=== PATIENT | female | born 1955 | race Caucasian/White ===

== ENCOUNTER → 2016-05-04 | Outpatient (CLI) | payer MEDICARE, BC ==
[2016-04-29 14:47] VITALS: BMI 26.2
[2016-05-04 12:35] VITALS: BP 154/78; PULSE 70; RESP 16; TEMP 98.1
--- NOTE | 2016-05-04 12:59 | P.HPIM ---
History of Present Illness H&P Date: 05/04/16 Chief Complaint: low back pain, bilateral lower extremity pain This is a 61-year-old patient referred by Dr. Lopez for chronic pain in low back and legs. Patient has been taking medications from primary care physician including Farner and Cymbalta with some relief. Patient denies adverse drug effects from medications. Patient also denies new-onset weakness, bowel/ bladder incontinence, or any other signs or symptoms of cauda equina syndrome. There are no signs of acute intoxication, and no indications of medication diversion or overuse. Patient notes that pain worsens significantly with standing and walking, and improves with rest, ice, and medication. Patient has used several types of medications for pain, including NSAIDS, OPIOIDS (Farner), TRAMADOL, ANTIDEPRESSANTS. Patient HAS had surgery. Patient HAS had neck injections previously and believes that she had a reaction to the steroids necessitating ER treatment with Benadryl but not epinephrine. Patient HAS had physical therapy recently. In addition to above, 13-point review of systems is also negative for chest pain , shortness of breath, changes in vision, changes in hearing, new onset weakness , abdominal pain, diarrhea, extreme fatigue, malaise, fever, skin changes, homicidal or suicidal ideation, or bowel or bladder incontinence. Vital Signs: Reviewed in EMR Gen: WDWN, AAOx3, NAD HEENT: NCAT, EOMI, hearing grossly normal Pulm: resp unlabored Abd: soft, NT, ND Neck: supple, trachea midline ROM in flexion lumbar spine: reduced ROM in extension lumbar spine: reduced Lumbar paravertebral tenderness: + Facet loading: + bilateral SI joint tenderness: + L side > R side Jose De Jesus's test: + L side > R side Straight leg raise: neg bilateral Neuro: CN II-XII grossly intact, muscle strength lower extremities PRESERVED Past Medical History Past Medical History: Fibromyalgia, GERD/Reflux, Osteoarthritis (OA) Additional Past Medical History / Comment(s): CHRONIC BACK PAIN, lower back pain to tail area and down both legs History of Any Multi-Drug Resistant Organisms: None Reported Past Surgical History: Back Surgery, Breast Surgery, Orthopedic Surgery, Tubal Ligation Additional Past Surgical History / Comment(s): BREAST AUGMENTATION, BUNIONECTOMY , LONA HAND SURGERY TOOK TENDON FROM ARM TO THUMB,RT THUMB SURGERY, BACK SURGERY X4 (CERVICAL AND LUMBAR WITH RODS AND SCREWS) Past Anesthesia/Blood Transfusion Reactions: Motion Sickness, Postoperative Nausea & Vomiting (PONV) Past Psychological History: Depression Smoking Status: Former smoker Past Alcohol Use History: Rare Additional Past Alcohol Use History / Comment(s): smoked 3 years <1/2ppd quit 1977 Past Drug Use History: Marijuana Additional Drug Use History / Comment(s): states uses medical marijuana "couple puffs before bed" - Past Family History Mother Family Medical History: Cancer Additional Family Medical History / Comment(s): UTERINE Father Family Medical History: Cancer, Fibromyalgia, Osteoarthritis (OA) Additional Family Medical History / Comment(s): SKIN CANCER Medications and Allergies Home Medications Medication Instructions Recorded Confirmed Type DULoxetine HCL [Cymbalta] 60 mg PO HS 11/13/13 05/04/16 History HYDROcodone/APAP 7.5-325MG [Farner 1 tab PO Q6HR PRN 11/13/13 05/04/16 History 7.5] DULoxetine HCL [Cymbalta] 30 mg PO DAILY 06/11/15 05/04/16 History Ibuprofen [Motrin] 800 mg PO DAILY PRN 04/29/16 05/04/16 History Allergies Allergy/AdvReac Type Severity Reaction Status Date / Time Neuromuscular Blockers, Allergy Unknown Swelling Verified 05/04/16 12:22 Steroidal [Steroidal Neuromuscular Blockers] Results Comments: MRI of the lumbar spine demonstrates multiple broad-based posterior disc protrusions. At the T12-L1 level there is a protrusion effacing the anterior thecal sac. At the L1-L2 level there is a right paracentral protrusion effacing the anterior lateral thecal sac. At the L2-L3 level there is a disc bulge effacing the anterior thecal sac with patent neural foramina. At the L3- L4 level there is a moderate broad disc bulge effacing the anterior thecal sac. At the L4-L5 level there is artifact and posterior fusion hardware. There is bilateral anterior inferior neural foraminal narrowing at this level. At the L5 -S1 level there are bilateral laminectomy defects and spinous process resection along with artifact and posterior fusion hardware. There is facet arthropathy and spondylolisthesis present at the L4-L5 level, along with facet degenerative changes at L1-L2, L2-L3, and L3-L4. Assessment and Plan (1) Lumbar postlaminectomy syndrome Status: Chronic (2) Lumbosacral spondylosis without myelopathy Status: Chronic (3) Sacroiliac joint dysfunction of both sides Status: Chronic Plan: Plan: 1. Explanation: Opioid and psychological risk scores were reviewed. Diagnoses , prognoses, and multiple treatment options including but not limited to physical therapy, interventional therapies, adjuvant medical therapies, narcotic medication therapies, and surgery were discussed with the patient and all questions were answered to the patient's satisfaction. 2. Opioid agreement: no opioids prescribed today 3. Counseling: The patient was counseled extensively on BODY MASS INDEX, EXERCISE. Specifically, the patient was instructed regarding the importance of weight control and exercise in the context of both chronic pain and overall health. 4. Procedures: bilateral lumbar MBB without steroids 5. Consultations: manager sharepoint Dr. Sam Nixon 6. Investigations: none 7. Medications: none prescribed 8. Disposition: f/u for MBB as scheduled. I believe that a large component of this patient's pain is coming from sacroiliitis, but given her poor reactions to steroid injections (severe flushing) and medrol dose anatoliy (skin blotching) in the past, I would like to have her worked up by an manager sharepoint to see if certain steroids could be used for interventions for her. Thus, I will schedule MBB without steroid for now and send her for allergy workup re: certain types of injected steroids. PQRS measures: 1-Patient's medications are documented in the chart. 2-Tobacco use is negative 3-Patient has not had a pneumococcal vaccine. 4-Advanced care planning discussed, patient unable to give. 5-Opioid contract NOT signed with the patient. 6-Pain positive, follow-up visit or procedure scheduled 7-Patient's blood pressure measured and documented, and patient will follow up with the primary care due to hypertension. 8-Patient's weight was measured, and body mass index ABOVE the normal limits, and counseling was done. Patient instructed to follow up with PCP. 9-Patient WAS NOT identified as an unhealthy alcohol user. Time with Patient: Greater than 30
== END ==
LOC: PNWHC3 12:14
PROVIDERS: ATTEND Anesthesiology
DX: M47.817 Spondylosis without myelopathy or radiculopathy, lumbosacral region (principal); M96.1 Postlaminectomy syndrome, not elsewhere classified; M53.3 Sacrococcygeal disorders, not elsewhere classified; M79.7 Fibromyalgia; K21.9 Gastro-esophageal reflux disease without esophagitis; M19.90 Unspecified osteoarthritis, unspecified site; F32.9 Major depressive disorder, single episode, unspecified; Z87.891 Personal history of nicotine dependence; Z79.1 Long term (current) use of non-steroidal anti-inflammatories (NSAID); Z79.899 Other long term (current) drug therapy; Z88.8 Allergy status to other drugs, medicaments and biological substances
CPT/HCPCS: 99211

== ENCOUNTER 2016-06-08 06:14 | Day surgery (SDC) | payer MEDICARE, BC ==
[2016-06-04 16:20] VITALS: BMI 26.6
[2016-06-08 06:33] VITALS: RESP 16; TEMP 98.4
[2016-06-08] MEDS ORDERED: LIDOCAINE 1% 20 ML VIAL (10MG/ML) FOR IV START INTRADERMA ONE (06:38)
[2016-06-08] MEDS ORDERED: LACTATED RINGERS 1,000 ML IV ONE (06:39)
[2016-06-08] MEDS ORDERED: BUPIVACAINE (PF) 0.5% 30 ML VIAL ONE (07:18)
[2016-06-08] MEDS ORDERED: MIDAZOLAM 2 MG/2 ML VIAL ONE (07:18)
[2016-06-08] MEDS ORDERED: IV FLUID CONTINUATION 1,000 ML IV ONE (07:46)
--- NOTE | 2016-06-08 07:46 | P.PCN ---
Date of Procedure: 06/08/16 Preoperative Diagnosis: Lumbar spondylosis without myelopathy Failed back surgery syndrome Postoperative Diagnosis: Same as above Procedure(s) Performed: Lumbar bilateral medial branch block under fluoroscopic guidance Anesthesia: MAC Surgeon: Jung James Pathology: none sent Condition: stable Disposition: PACU Description of Procedure: The patient was seen in the preoperative holding area consent was obtained then she was brought into the procedure room and placed in prone position. Skin was prepped with ChloraPrep and draped in a sterile manner. Lidocaine 1% was used to numb the skin over the target points that were chosen as follows: The patient has hardware to reduce the L5 vertebra with S1 under levels that were done were the fusion level, the target points were the connection between the transverse process and the superior articular process of vertebra L5, lumber 4, lumbar 3 targeting the medial branches L2,3 and 4. I used 22-gauge 3-1/2 inch Quincke spinal needles for this procedure and after contacting bone at the target points mentioned above I injected 1 mL of Marcaine 0.5%. I did not use steroids and also did not give any IV fentanyl for this procedure and only gave 2 mg of Versed IV. The patient had an ALLERGIC reaction to steroids and she is going to see an thread clipper.
[2016-06-08] MEDS ORDERED: LACTATED RINGERS 1,000 ML IV SCH (08:00)
[2016-06-08 08:05] VITALS: BP 144/88; PULSE 70
--- NOTE | 2016-06-08 09:18 | FL ---
EXAMINATION TYPE: FL guided pain mgmt statistic DATE OF EXAM: 06/08/2016 7:45 AM CLINICAL HISTORY: Low back pain. TECHNIQUE: Fluoroscopy. COMPARISON: None. FINDINGS: Fluoroscopic guidance was provided during pain relief procedure performed by Dr. James . A total of 8 seconds of fluoroscopic time was utilized during the procedure and 1 spot intraoperati ve image is acquired. Single image acquired shows needle localization at multiple levels in the lumb ar spine with surgical change near lumbosacral junction partially imaged. IMPRESSION: As Above.
== END 2016-06-08 08:31 | disposition home or self-care (01) ==
LOC: ORPAIN 06:14
PROVIDERS: ATTEND Anesthesiology
DX: M47.816 Spondylosis without myelopathy or radiculopathy, lumbar region (principal); M96.1 Postlaminectomy syndrome, not elsewhere classified; Z88.8 Allergy status to other drugs, medicaments and biological substances
CPT/HCPCS: 64493; 64494; 64495; J2250

== ENCOUNTER 2016-07-02 11:07 | Day surgery (SDC) | payer MEDICARE, BC ==
[2016-06-30 14:41] VITALS: BMI 26.6
[~2016-07-02 11:07] MED LIST: LACTATED RINGERS 1,000 ML IV SCH
[2016-07-02 11:18] VITALS: RESP 16; TEMP 98.1
[2016-07-02] MEDS ORDERED: LIDOCAINE 1% 20 ML VIAL (10MG/ML) FOR IV START INTRADERMA ONE (11:26)
[2016-07-02] MEDS ORDERED: BUPIVACAINE (PF) 0.5% 30 ML VIAL ONE (12:04)
[2016-07-02] MEDS ORDERED: MIDAZOLAM 2 MG/2 ML VIAL ONE (12:04)
--- NOTE | 2016-07-02 12:31 | P.PCN ---
Date of Procedure: 07/02/16 Preoperative Diagnosis: Postoperative Diagnosis: Procedure(s) Performed: Implants: Surgeon: Ryan Carranza Pathology: none sent Condition: stable Disposition: PACU Indications for Procedure: Operative Findings: Description of Procedure: PREOPERATIVE DIAGNOSIS: L2-L3, L3-L4, L4-L5 spondylosis without myelopathy and facet arthropathy. POSTOPERATIVE DIAGNOSIS: L2-L3, L3-L4, L4-L5 spondylosis without myelopathy and facet arthropathy. PROCEDURE DESCRIPTION: Patient presents for L2, L3, L4 diagnostic medial branch blocks under fluoroscopic guidance. The procedure is performed using fluoroscopic guidance during needle placement to assure proper position and maximize safety. ANESTHESIA: Local with 1% lidocaine; conscious sedation with Versed only EBL: Minimal PROCEDURE INDICATION: Patient with lumbar facet arthropathy signs and symptoms, here for diagnostic medial branch block #2. Pt does not take any blood thinning medications. Patient with very little relief from first lumbar MBB. PROCEDURE DESCRIPTION: The patient was seen and identified in the preoperative area. Risks, benefits, complications, and alternatives were discussed with the patient (including but not limited to incomplete pain relief, bleeding, infection, nerve damage, and allergies to medications), the patient agreed to proceed with the procedure and signed the consent after all questions were answered. Patient was taken to the OR and time out was completed to verify proper patient, position, laterality of pain, and allergies. Pt was placed in the prone position and a pillow was placed under the abdomen to reduce lumbar lordosis. The lumbosacral area was prepped and draped in the usual sterile fashion. Using oblique fluoroscopy, the eye of the "Hamilton dog" of right L3 vertebral body, which corresponds to the path of the medial branch originating from the level above, which is L2 in this case, was identified. Subsequently, a 22-gauge 3.5-inch spinal needle was inserted under fluoroscopic guidance toward the eye of the "Hamilton dog" of the right L4 vertebral body, corresponding to the junction of the superior articular process and the transverse process of the pedicle of the same level. After needle tip confirmation on lateral view and after negative aspiration for CSF and blood and without paresthesias, 1 mL of a 6 ml solution of 0.5% preservative-free bupivacaine, and NO STEROID. Subsequently the needle was withdrawn intact and the same procedure was repeated for the right L3, right L4, left L2, left L3, and left L4 medial branches which together with right L3 medial branch correspond to the sensory innervation of the bilateral L2-L3, L3-L4, L4-L5 facet joints. Needle was withdrawn intact after each injection. At the end of the procedure, the skin was cleansed and bandages were applied. COMPLICATIONS: None. DISPOSITION/PLAN: The patient taken to the recovery area after the procedure in a stable condition for observation. Patient was reexamined prior to discharge and there were no issues. Patient was discharged home, accompanied by an adult, after meeting discharged criteria. Discharge instructions were give to the patient by the staff. Patient was specifically instructed not to drive today and to rest for the rest of the day, and had immediate relief after the procedure. Patient will schedule a follow-up in clinic to discuss allergy issues with steroids after meeting with Dr. Nixon, the bowling ball grader. In the future, if repeat MBB performed, we will likely go at the levels of L2-L3, L3-L4, and L4-L5 as was done today.
[2016-07-02] MEDS ORDERED: IV FLUID CONTINUATION 1,000 ML IV ONE (12:33)
[2016-07-02 13:10] VITALS: BP 121/73; PULSE 67
--- NOTE | 2016-07-02 15:38 | FL ---
EXAMINATION TYPE: FL guided pain mgmt statistic DATE OF EXAM: 07/02/2016 12:29 PM CLINICAL HISTORY: Low back pain. TECHNIQUE: Fluoroscopy. COMPARISON: None. FINDINGS: Fluoroscopic guidance was provided during pain relief procedure performed by Dr. Cleveland . A total of 30 seconds of fluoroscopic time was utilized during the procedure and 7 spot images are acquired. Images acquired shows needle localization at several levels in the low back, postsurgical change at lumbosacral junction is noted. IMPRESSION: As Above.
== END 2016-07-02 13:14 | disposition home or self-care (01) ==
LOC: ORPAIN 11:07
PROVIDERS: ATTEND Specialist
DX: G89.29 Other chronic pain (principal); M54.5 Low back pain; M47.816 Spondylosis without myelopathy or radiculopathy, lumbar region; M46.96 Unspecified inflammatory spondylopathy, lumbar region; Z79.891 Long term (current) use of opiate analgesic; Z79.899 Other long term (current) drug therapy; Z88.8 Allergy status to other drugs, medicaments and biological substances
CPT/HCPCS: 64493; 64494; 64495; 99152; J2250

== ENCOUNTER → 2016-08-31 | Outpatient (CLI) | payer MEDICARE, BC ==
[2016-08-31 13:18] VITALS: BP 133/84; PULSE 76; RESP 16; TEMP 97.6
--- NOTE | 2016-08-31 13:36 | P.PN ---
Progress Note - Text Patient returns for followup for back pain with radiation to hips. Patient recently underwent LMBB x 2, the first of which gave her very little relief and the second of which gave her two weeks' relief despite lack of steroid from both. She has seen Dr. Nixon, the ip technology transactions attorney, who indicated to the patient that she can undergo steroid injections as long as she uses Benadryl po before. Patient continues on medical marijuana for pain with good relief. Patient denies adverse drug effects from medications. Today, pt denies new-onset weakness, bowel/bladder incontinence, or any other signs or symptoms of cauda equina syndrome. There are no signs of acute intoxication, and no indications of medication diversion or overuse. In addition to above, 13-point review of systems is also negative for chest pain , shortness of breath, changes in vision, changes in hearing, new onset weakness , abdominal pain, diarrhea, extreme fatigue, malaise, fever, skin changes, homicidal or suicidal ideation, or bowel or bladder incontinence. Vital Signs: Reviewed in EMR Gen: WDWN, AAOx3, NAD HEENT: NCAT, EOMI, hearing grossly normal Pulm: resp unlabored Abd: soft, NT, ND Neck: supple, trachea midline ROM in flexion lumbar spine: reduced ROM in extension lumbar spine: reduced Lumbar paravertebral tenderness: + Facet loading: + bilateral SI joint tenderness: + R > L Jose De Jesus's test: + R > L Straight leg raise: neg Neuro: CN II-XII grossly intact, muscle strength lower extremities PRESERVED Imaging: Reviewed in EMR Assessment: 1. lumbar spondylosis without myelopathy 2. lumbar PLPS 3. chronic pain syndrome Plan: 1. Explanation: Opioid and psychological risk scores were reviewed. Diagnoses , prognoses, and multiple treatment options including but not limited to physical therapy, interventional therapies, adjuvant medical therapies, narcotic medication therapies, and surgery were discussed with the patient and all questions were answered to the patient's satisfaction. 2. Opioid agreement: no opioids prescribed today 3. Counseling: The patient was counseled extensively on SMOKING CESSATION, BODY MASS INDEX, EXERCISE. Specifically, the patient was instructed regarding the importance of smoking cessation, weight control, and exercise in the context of both chronic pain and overall health. 4. Procedures: bilateral LMBB WITH steroid (patient to pre-medicate herself with Benadryl po two nights before and night before procedure) 5. Consultations: None 6. Investigations: None 7. Medications: none prescribed, patient uses THC 8. Disposition: f/u for procedure as scheduled; will ensure that diphenhydramine and epinephrine are available in OR 7 in case of allergic reaction PQRS measures: 1-Patient's medications are documented in the chart. 2-Tobacco use is positive, counseling given 3-Patient has not had a pneumococcal vaccine. 4-Advanced care planning discussed, patient unable to give. 5-Opioid contract NOT signed with the patient. 6-Pain positive, follow-up visit or procedure scheduled 7-Patient's blood pressure measured and documented, and patient will follow up with the primary care due to hypertension. 8-Patient's weight was measured, and body mass index ABOVE the normal limits, and counseling was done. Patient instructed to follow up with PCP. 9-Patient WAS NOT identified as an unhealthy alcohol user.
== END | disposition home or self-care (01) ==
LOC: PNWHC3 12:57
PROVIDERS: ATTEND Anesthesiology
DX: M47.816 Spondylosis without myelopathy or radiculopathy, lumbar region (principal); M96.1 Postlaminectomy syndrome, not elsewhere classified; G89.4 Chronic pain syndrome
CPT/HCPCS: 99211

== ENCOUNTER 2016-09-03 06:49 | Day surgery (SDC) | payer MEDICARE, BC ==
[2016-09-01 08:36] VITALS: BMI 26.6
[2016-09-03] MEDS ORDERED: LACTATED RINGERS 1,000 ML IV SCH (07:30)
[2016-09-03 07:34] VITALS: RESP 16; TEMP 98.3
[2016-09-03] MEDS ORDERED: LIDOCAINE 1% 20 ML VIAL (10MG/ML) FOR IV START INTRADERMA ONE (07:40)
[2016-09-03] MEDS ORDERED: IV FLUID CONTINUATION 1,000 ML IV ONE ×2 (08:21)
--- NOTE | 2016-09-03 08:24 | P.PCN ---
Date of Procedure: 09/03/16 Preoperative Diagnosis: Postoperative Diagnosis: Procedure(s) Performed: Implants: Surgeon: Ryan Carranza Pathology: none sent Condition: stable Disposition: PACU Indications for Procedure: Operative Findings: Description of Procedure: PREOPERATIVE DIAGNOSIS: L2-L3, L3-L4, L4-L5 spondylosis without myelopathy and facet arthropathy. POSTOPERATIVE DIAGNOSIS: L2-L3, L3-L4, L4-L5 spondylosis without myelopathy and facet arthropathy. PROCEDURE DESCRIPTION: Patient presents for L2-L3, L3-L4, L4-L5 diagnostic medial branch blocks under fluoroscopic guidance. The procedure is performed using fluoroscopic guidance during needle placement to assure proper position and maximize safety. ANESTHESIA: Local with 1% lidocaine; conscious sedation with Versed only EBL: Minimal PROCEDURE INDICATION: Patient with lumbar facet arthropathy signs and symptoms, here for diagnostic medial branch block #2. Pt does not take any blood thinning medications. Patient with two weeks from first LMBB done without steroids. Patient then saw activity manager who tested her for steroid allergy and she does not have it. PROCEDURE DESCRIPTION: The patient was seen and identified in the preoperative area. Risks, benefits, complications, and alternatives were discussed with the patient (including but not limited to incomplete pain relief, bleeding, infection, nerve damage, and allergies to medications), the patient agreed to proceed with the procedure and signed the consent after all questions were answered. Patient was taken to the OR and time out was completed to verify proper patient, position, laterality of pain, and allergies. Pt was placed in the prone position and a pillow was placed under the abdomen to reduce lumbar lordosis. The lumbosacral area was prepped and draped in the usual sterile fashion. Using oblique fluoroscopy, the eye of the "Hamilton dog" of right L3 vertebral body, which corresponds to the path of the medial branch originating from the level above, which is L2 in this case, was identified. Subsequently, a 22-gauge 3.5-inch spinal needle was inserted under fluoroscopic guidance toward the eye of the "Ham[place] dog" of the right L3 vertebral body, corresponding to the junction of the superior articular process and the transverse process of the pedicle of the same level. After needle tip confirmation on lateral view and after negative aspiration for CSF and blood and without paresthesias, 1 mL of a 6 ml solution of 5 ml 0.5% preservative-free bupivacaine, and 10 mg PF Decadron was injected. Subsequently the needle was withdrawn intact and the same procedure was repeated for the right L3, right L4, left L2, left L3, and left L4 medial branches which together with right L2 medial branch correspond to the sensory innervation of the bilateral L2-L3, L3-L4, L4-L5 facet joints. Needle was withdrawn intact after each injection. At the end of the procedure, the skin was cleansed and bandages were applied. COMPLICATIONS: None. DISPOSITION/PLAN: The patient taken to the recovery area after the procedure in a stable condition for observation. Patient was reexamined prior to discharge and there were no issues. Patient was discharged home, accompanied by an adult, after meeting discharged criteria. Discharge instructions were give to the patient by the staff. Patient was specifically instructed not to drive today and to rest for the rest of the day, and had immediate relief (pain 0/10) after the procedure. Patient will schedule a lumbar RFA at next visit.
[2016-09-03 08:26] VITALS: PULSE 62
[2016-09-03 08:39] VITALS: BP 115/78
--- NOTE | 2016-09-03 09:03 | FL ---
EXAMINATION TYPE: FL guided pain mgmt statistic DATE OF EXAM: 09/03/2016 HISTORY: Pain 30 SEC FLUORO, 7 IMAGES SCANNED INTO PACS
== END 2016-09-03 08:44 | disposition home or self-care (01) ==
LOC: ORPAIN 06:49
PROVIDERS: ATTEND Anesthesiology
DX: G89.4 Chronic pain syndrome (principal); M47.816 Spondylosis without myelopathy or radiculopathy, lumbar region; M46.96 Unspecified inflammatory spondylopathy, lumbar region; M96.1 Postlaminectomy syndrome, not elsewhere classified
CPT/HCPCS: 64493; 64494; 64495; 99152; J2250; J1100; 99153

== ENCOUNTER 2016-10-07 06:22 | Day surgery (SDC) | payer MEDICARE, BC ==
[2016-10-02 11:41] VITALS: BMI 26.6
[2016-10-07 07:39] VITALS: TEMP 98.3
[2016-10-07] MEDS ORDERED: LIDOCAINE 1% 20 ML VIAL (10MG/ML) FOR IV START INTRADERMA ONE (07:44)
--- NOTE | 2016-10-07 08:41 | P.PCN ---
Date of Procedure: 10/07/16 Preoperative Diagnosis: Postoperative Diagnosis: Procedure(s) Performed: PREOPERATIVE DIAGNOSIS: 1-Lumbar Spondylosis with Facet Arthropathy without myelopathy. POSTOPERATIVE DIAGNOSIS: 1- Lumbar Spondylosis with Facet Arthropathy without myelopathy. PROCEDURES : Left Radiofrequency thermocoagulation, L2-3 ,L3-L4, L4-L5, medial branch, with fluoroscopic guidance ANESTHESIA: IV sedation with versed 2 mg and fentaneyl 100 mcg and local infiltration with lidocaine 1% 6 ml EBL: Minimal PROCEDURE INDICATION: The patient with low back pain secondary to lumbar facet arthropathy who had more than 50% relief of her pain with previous diagnostic lumbar medial branch block with bupivacaine. PROCEDURE DESCRIPTION / TECHNIQUE: The patient was seen and identified in the preoperative area. Risks, benefits, complications, including but not limited to risk of infection ,bleeding , allergic reactions to the medications and no complete pain releife , and alternatives were discussed with the patient, the patient agreed to proceed with the procedure and signed the consent. IV was started. Vital signs remained stable throughout the procedure. Patient was taken to the OR and time out was completed. The patient was placed in the prone position on the procedure table. The lumber area was prepped and draped in the usual sterile fashion. . Vital signs were closely monitored during the procedure .IV sedation was used during the procedure to decrease patients anxiety. Using AP and then oblique fluoroscopy, the ``eye of the Hamilton dog corresponding to the connection between the superior and transverse articular processes of Left L2 ,L3, L4, were identified, marked, and localized with 1% lidocaine. Subsequently, a [id number] radiofrequency cannula with a 10-mm active tip was advanced guided by fluoroscopy to each of the ``eyes of the Hamilton dog at Left L2 ,L3, L4 . Each site then underwent sensory testing at 50 Hz and 0 to 1 volt and motor testing at 2.5 Hz and 0 to 3 volt with local stimulation, but no radicular symptoms down the legs. Thereafter the Left L2-3 , L3-4, L4-5, sites underwent radiofrequency thermocoagulation at 80 degrees celsius for 90 seconds after injecting 0.5 ml of PF lidocaine 1%. then After the thermocoagulation done , 1 ml of the block solution containing PF Dexamethasone 10 mg and 3 ml of marain 0.5% was injected at the Left L2-3 , L3- 4 , L4-5 , levels after negative aspiration of CSF and blood and with no paresthesias. Cannulas were retracted while injecting lidocaine 1% until the needle is out. At the end of the procedure, the skin was cleansed and bandages were applied. COMPLICATIONS: No acute complications. DISPOSITION / PLANS: The patient was placed in a supine position and transferred to the recovery area in a stable condition for observation and was discharged from the recovery room after meeting discharge criteria. Home discharge instructions given to the patient by the staff. The patient was reexamined prior to discharge. The patient will schedule a follow up in the clinic in 2-4 weeks. Implants: Indications for Procedure: Operative Findings: Description of Procedure:
[2016-10-07] MEDS ORDERED: IV FLUID CONTINUATION 1,000 ML IV ONE (08:46)
[2016-10-07 08:49] VITALS: RESP 18
[2016-10-07 09:02] VITALS: BP 120/72; PULSE 73
--- NOTE | 2016-10-07 10:12 | FL ---
EXAMINATION TYPE: FL guided pain mgmt statistic DATE OF EXAM: 10/07/2016 COMPARISON: NONE HISTORY: Back pain TECHNIQUE: Fluoroscopy. FINDINGS/IMPRESSION: Fluoroscopic guidance was provided during procedure performed by Dr. Cleveland. A total of 7 seconds of fluoroscopic time was utilized during the procedure.
== END 2016-10-07 09:23 | disposition home or self-care (01) ==
LOC: ORPAIN 06:22
PROVIDERS: ATTEND Specialist
DX: M47.816 Spondylosis without myelopathy or radiculopathy, lumbar region (principal); M46.96 Unspecified inflammatory spondylopathy, lumbar region; Z88.8 Allergy status to other drugs, medicaments and biological substances
CPT/HCPCS: 64635; 64636 ×2; 99152; J2250; J1100; J3010; 99153

== ENCOUNTER → 2016-10-26 | Outpatient (CLI) | payer MEDICARE, BC ==
[2016-10-26 13:17] VITALS: BP 142/90; PULSE 91; RESP 18; TEMP 98.5
--- NOTE | 2016-10-26 13:28 | P.PN ---
Progress Note - Text Patient returns for followup for back pain with radiation to hips. Patient recently underwent left lumbar RFA. She has seen Dr. Nixon, the dehydrator tender, who indicated to the patient that she can undergo steroid injections as long as she uses Benadryl po before. Patient continues on medical marijuana and [place] for pain from PCP with good relief. Patient denies adverse drug effects from medications. Today, pt denies new-onset weakness, bowel/bladder incontinence, or any other signs or symptoms of cauda equina syndrome. There are no signs of acute intoxication, and no indications of medication diversion or overuse. In addition to above, 13-point review of systems is also negative for chest pain , shortness of breath, changes in vision, changes in hearing, new onset weakness , abdominal pain, diarrhea, extreme fatigue, malaise, fever, skin changes, homicidal or suicidal ideation, or bowel or bladder incontinence. Vital Signs: Reviewed in EMR Gen: WDWN, AAOx3, NAD HEENT: NCAT, EOMI, hearing grossly normal Pulm: resp unlabored Abd: soft, NT, ND Neck: supple, trachea midline ROM in flexion lumbar spine: reduced ROM in extension lumbar spine: reduced Lumbar paravertebral tenderness: + Facet loading: + bilateral SI joint tenderness: + bilateral Jose De Jesus's test: + bilateral Straight leg raise: neg Neuro: CN II-XII grossly intact, muscle strength lower extremities PRESERVED Imaging: Reviewed in EMR Assessment: 1. lumbar spondylosis without myelopathy 2. lumbar PLPS 3. chronic pain syndrome Plan: 1. Explanation: Opioid and psychological risk scores were reviewed. Diagnoses , prognoses, and multiple treatment options including but not limited to physical therapy, interventional therapies, adjuvant medical therapies, narcotic medication therapies, and surgery were discussed with the patient and all questions were answered to the patient's satisfaction. 2. Opioid agreement: no opioids prescribed today 3. Counseling: The patient was counseled extensively on SMOKING CESSATION, BODY MASS INDEX, EXERCISE. Specifically, the patient was instructed regarding the importance of smoking cessation, weight control, and exercise in the context of both chronic pain and overall health. 4. Procedures: right lumbar RFA L2-L3, L3-L4, L4-L5 5. Consultations: None 6. Investigations: None 7. Medications: none prescribed, patient uses THC 8. Disposition: f/u for procedure as scheduled; patient to follow up PRN after procedure PQRS measures: 1-Patient's medications are documented in the chart. 2-Tobacco use is positive, counseling given 3-Patient has not had a pneumococcal vaccine. 4-Advanced care planning discussed, patient unable to give. 5-Opioid contract NOT signed with the patient. 6-Pain positive, follow-up visit or procedure scheduled 7-Patient's blood pressure measured and documented, and patient will follow up with the primary care due to hypertension. 8-Patient's weight was measured, and body mass index ABOVE the normal limits, and counseling was done. Patient instructed to follow up with PCP. 9-Patient WAS NOT identified as an unhealthy alcohol user.
== END | disposition home or self-care (01) ==
LOC: PNWHC3 12:53
PROVIDERS: ATTEND Anesthesiology
DX: M47.816 Spondylosis without myelopathy or radiculopathy, lumbar region (principal); M96.1 Postlaminectomy syndrome, not elsewhere classified; G89.4 Chronic pain syndrome; Z79.899 Other long term (current) drug therapy
CPT/HCPCS: 99211

== ENCOUNTER 2016-11-02 09:05 | Day surgery (SDC) | payer MEDICARE, BC ==
[2016-10-28 15:45] VITALS: BMI 26.6
[2016-11-02] MEDS ORDERED: LIDOCAINE 1% 20 ML VIAL (10MG/ML) FOR IV START INTRADERMA ONE (09:11)
[2016-11-02 09:21] VITALS: RESP 16; TEMP 98.2
--- NOTE | 2016-11-02 10:15 | P.PCN ---
Date of Procedure: 11/02/16 Preoperative Diagnosis: Failed back surgery syndrome Lumbar spondylosis without myelopathy Postoperative Diagnosis: Same as above Procedure(s) Performed: Right Lumbar medial branch radiofrequency ablation for the medial branches number L1,L2, L3,and L4 under fluoroscopic guidance Anesthesia: MAC (Moderate conscious sedation with IV Versed and fentanyl) Surgeon: Jung James Pathology: none sent Condition: stable Disposition: PACU Description of Procedure: Of note the patient has 6 lumbar vertebrae and the last one #6 is fused to the sacrum by hardware from her previous back surgery. The patient has an ALLERGIC reaction to steroids with face flushing, but steroids were not used in this procedure today. I did not target the dorsal ramus of L5 due to the lumbar sacral fusion by hardware. The medial branches that were targeted to were lumbar L1, L2, L3, and L4 and this covers 3 levels of the facet joints. I used 18-gauge 100 mm in length with 10 mm curved active tip radio frequency ablation needles for this procedure. I placed the active tips as parallel as possible to the medial branches tracks by going in a superior medial direction. The target point was at the connection between the transverse process and the superior articular process of vertebrae L5, L4, L3, and L2. AP, oblique, and lateral views of fluoroscopy were used to verify needle tip position. Then motor stimulation showed only local twitches of these needles with no radiation of twitching to the right lower extremity. After That I injected 1 mL of Marcaine 0.5% without any steroids in each needle, then radiofrequency ablation started for 90 seconds at 80C for 2 sessions. Patient tolerated procedure well. Fluoroscopy time 17 seconds.
[2016-11-02 10:26] VITALS: PULSE 71
[2016-11-02] MEDS ORDERED: IV FLUID CONTINUATION 1,000 ML IV ONE (10:32)
[2016-11-02 10:53] VITALS: BP 138/84
--- NOTE | 2016-11-02 10:53 | FL ---
EXAMINATION TYPE: FL guided pain mgmt statistic DATE OF EXAM: 11/02/2016 FLUOROSCOPY Fluoroscopy time of 17 seconds was used during right-sided lumbar radiofrequency ablation. 3 image/s document/s the procedure.
== END 2016-11-02 11:04 | disposition home or self-care (01) ==
LOC: ORPAIN 09:05
PROVIDERS: ATTEND Anesthesiology
DX: M47.816 Spondylosis without myelopathy or radiculopathy, lumbar region (principal); M96.1 Postlaminectomy syndrome, not elsewhere classified; Z79.891 Long term (current) use of opiate analgesic; Z79.899 Other long term (current) drug therapy; Z88.8 Allergy status to other drugs, medicaments and biological substances
CPT/HCPCS: 64635; 64636 ×2; 99152; J2250; J3010

== ENCOUNTER 2016-12-28 09:30 | Day surgery (SDC) | payer MEDICARE, BC ==
[2016-12-25 08:12] VITALS: BMI 26.6
[2016-12-28 09:17] VITALS: RESP 16; TEMP 97
[~2016-12-28 09:30] MED LIST changes: +LIDOCAINE 1% 20 ML VIAL (10MG/ML) FOR IV START INTRADERMA ONE
--- NOTE | 2016-12-28 10:23 | P.PCN ---
Date of Procedure: 12/28/16 Preoperative Diagnosis: Myofascial pain in the lumbar area Lumbar postlaminectomy pain syndrome Postoperative Diagnosis: Same as above Anesthesia: MAC (Conscious sedation with IV fentanyl and Versed) Surgeon: Jung James Pathology: none sent Condition: stable Disposition: PACU Description of Procedure: The patient was seen in the preop holding area consent was obtained then she was brought into the procedure room and placed in prone position. Skin was prepped with DuraPrep and draped in a sterile manner. The trigger points were marked at the skin level then I used 25-gauge 1-1/2 inch needle to go through the skin and into the muscles of the lumbar paravertebral area bilaterally total of 5 injections were done and at each point I give 2 MLS of a mixture of 9 MLS Marcaine 0.25% +40 mg of Kenalog. Patient tolerated procedure well. The patient will follow up with our clinic as needed.
[2016-12-28 10:59] VITALS: BP 123/72; PULSE 65
== END 2016-12-28 11:30 | disposition home or self-care (01) ==
LOC: ORPAIN 09:30
PROVIDERS: ATTEND Anesthesiology
DX: G89.4 Chronic pain syndrome (principal); M79.1 Myalgia; M96.1 Postlaminectomy syndrome, not elsewhere classified; Z79.891 Long term (current) use of opiate analgesic; Z79.899 Other long term (current) drug therapy; M47.816 Spondylosis without myelopathy or radiculopathy, lumbar region; Z88.8 Allergy status to other drugs, medicaments and biological substances
CPT/HCPCS: 20553; J3301; 99152

== ENCOUNTER → 2017-01-04 | Outpatient (CLI) | payer MEDICARE, BC ==
[2017-01-04 11:02] LABS: Basophils % (A) 0 %; CH 31.5; CHCM 34.7; Eosinophils # (A) 0.1 k/uL (0-0.7); Eosinophils % (A) 1 %; HCT 40.6 % (34.0-46.0); HDW 2.56; HGB 13.6 gm/dL (11.4-16.0); Luc # (Auto) 0.14; Luc % (Auto) 2; Lymphocytes # (A) 1.8 k/uL (1.0-4.8); Lymphocytes % (A) 21 %; MCH 30.5 pg (25.0-35.0); MCHC 33.4 g/dL (31.0-37.0); MCV 91.2 fL (80.0-100.0); Mean Platelet Volume 6.4; Monocytes # (A) 0.4 k/uL (0-1.0); Monocytes % (A) 5 %; Neutrophils # (A) 6.1 k/uL (1.3-7.7); Neutrophils % (A) 71 %; RBC 4.45 m/uL (3.80-5.40); RDW 12.6 % (11.5-15.5); WBC 8.6 k/uL (3.8-10.6); WBC (Perox) 8.69
[2017-01-04 11:18] LABS: ALT 44 U/L (9-52); AST 21 U/L (14-36); Alkaline Phosphatase 70 U/L (38-126); Bilirubin, Delta 0.1 mg/dL (0.0-0.2); C Reactive Protein <5.0 mg/L (<10.0); Rheumatoid Factor, Qnt <9 IU/mL (<12); Total Bilirubin 0.4 mg/dL (0.2-1.3); Total Protein 6.7 g/dL (6.3-8.2)
[2017-01-04 13:35] LABS: Erythrocyte Sedimentation Rate 13 mm/hr (0-20)
[2017-01-05 11:19] LABS: HLA B27 Comment SEEBELOW
== END | disposition home or self-care (01) ==
LOC: LABWHC1 10:16
PROVIDERS: ATTEND Nurse Practitioner Women's Health
DX: M54.5 Low back pain (principal); M06.9 Rheumatoid arthritis, unspecified; M79.7 Fibromyalgia; Z79.899 Other long term (current) drug therapy
CPT/HCPCS: 36415; 80076; 85025; 85652; 86140; 86162; 86431; 86812

== ENCOUNTER → 2017-07-23 | Outpatient (CLI) | payer MEDICARE, BC ==
[2017-07-23 08:26] LABS: Basophils % (A) 0 %; Eosinophils # (A) 0.2 k/uL (0-0.7); Eosinophils % (A) 2 %; HCT 43.4 % (34.0-46.0); HGB 14.7 gm/dL (11.4-16.0); Lymphocytes # (A) 1.5 k/uL (1.0-4.8); Lymphocytes % (A) 20 %; MCH 30.8 pg (25.0-35.0); MCHC 33.8 g/dL (31.0-37.0); Monocytes # (A) 0.3 k/uL (0-1.0); Monocytes % (A) 4 %; Neutrophils # (A) 5.1 k/uL (1.3-7.7); Neutrophils % (A) 71 %; Platelet Count 424 k/uL (150-450); RBC 4.77 m/uL (3.80-5.40); RDW 13.2 % (11.5-15.5); WBC 7.1 k/uL (3.8-10.6)
[2017-07-23 08:48] LABS: ALT 26 U/L (9-52); AST 23 U/L (14-36); Albumin 4.6 g/dL (3.5-5.0); Alkaline Phosphatase 68 U/L (38-126); Anion Gap 13 mmol/L; Blood Urea Nitrogen 26 mg/dL (7-17); Calcium 9.6 mg/dL (8.4-10.2); Carbon Dioxide 26 mmol/L (22-30); Chloride 104 mmol/L (98-107); Cholesterol 246 mg/dL (<200); Glucose 94 mg/dL (74-99); HDL Cholesterol 92 mg/dL (40-60); LDL Cholesterol,Calculated 138 mg/dL (0-99); Potassium 4.6 mmol/L (3.5-5.1); Sodium 143 mmol/L (137-145); Total Bilirubin 0.7 mg/dL (0.2-1.3); Total Protein 7.2 g/dL (6.3-8.2); Triglycerides 82 mg/dL (<150)
== END | disposition home or self-care (01) ==
LOC: LABWHC1 08:04
PROVIDERS: ATTEND Family Medicine
DX: Z00.00 Encounter for general adult medical examination without abnormal findings (principal); M06.9 Rheumatoid arthritis, unspecified; M79.7 Fibromyalgia
CPT/HCPCS: 36415; 80053; 80061; 84443; 85025

== ENCOUNTER → 2017-08-03 | Outpatient (CLI) | payer MEDICARE, BC ==
--- NOTE | 2017-08-05 12:08 | MM ---
Reason for exam: screening (asymptomatic). Last mammogram was performed 2 years and 7 months ago. History: Patient is postmenopausal. Family history of breast cancer in grandmother at age 70. Retro-pectoral saline implants in both breasts, 1997. Took estrogen beginning at age 51. Took progesterone beginning at age 51. Physical Findings: A clinical breast exam by your physician is recommended on an annual basis and results should be correlated with mammographic findings. MG Screening Mammo Implant/CAD Bilateral CC, MLO, and ID view(s) were taken. Prior study comparison: January 15, 2015, bilateral MG 3d diag mammo imp w/cad LONA. December 26, 2013, bilateral MG diagnostic mammo w CAD LONA. There is chronic nodularity in the left breast. Bilateral breast prothesis. No significant changes when compared with prior studies. ASSESSMENT: Benign, BI-RAD 2 RECOMMENDATION: Routine screening mammogram of both breasts in 1 year.
== END | disposition home or self-care (01) ==
LOC: RADMAMWWP 09:32
PROVIDERS: ATTEND Family Medicine
DX: Z12.31 Encounter for screening mammogram for malignant neoplasm of breast (principal)
CPT/HCPCS: 77067

== ENCOUNTER → 2018-08-23 | Outpatient (CLI) | payer MEDICARE, BC ==
[2018-08-23 10:06] LABS: Basophils % (A) 0 %; Eosinophils # (A) 0.1 k/uL (0-0.7); Eosinophils % (A) 2 %; HGB 13.6 gm/dL (11.4-16.0); Lymphocytes # (A) 1.4 k/uL (1.0-4.8); Lymphocytes % (A) 26 %; MCH 30.6 pg (25.0-35.0); MCHC 33.1 g/dL (31.0-37.0); MCV 92.4 fL (80.0-100.0); Mean Platelet Volume 6.2; Monocytes # (A) 0.2 k/uL (0-1.0); Monocytes % (A) 5 %; Neutrophils # (A) 3.4 k/uL (1.3-7.7); Neutrophils % (A) 64 %; Platelet Count 426 k/uL (150-450); RBC 4.44 m/uL (3.80-5.40); RDW 12.6 % (11.5-15.5); WBC 5.3 k/uL (3.8-10.6)
[2018-08-23 17:49] LABS: African American GFR (CKD) 91.6 (60.0-200.0); Albumin 4.4 g/dL (3.80-4.90); Albumin/Globulin Ratio 2.59 (1.60-3.17); Anion Gap 7.3 mmol/L (4.00-12.00); BUN/Creat Ratio 27.5 Ratio (12.00-20.00); Calcium 9.6 mg/dL (8.7-10.3); Carbon Dioxide 26.7 mmol/L (21.6-31.8); Globulin 1.7 g/dL (1.6-3.3); LDL Cholesterol,Calculated 124.2 mg/dL (0.0-131.0); Potassium 4.4 mmol/L (3.5-5.5); Total Bilirubin 0.8 mg/dL (0.2-1.2); Total Protein 6.1 g/dL (6.2-8.2); VLDL Calculation 13.8 mg/dL (5.00-40.00)
[2018-08-23 18:01] LABS: T4, Free (Free Thyroxine) 0.9 ng/dL (0.80-1.80)
== END | disposition home or self-care (01) ==
LOC: LABWHC1 09:14
PROVIDERS: ATTEND Family Medicine
DX: M43.17 Spondylolisthesis, lumbosacral region (principal); M79.7 Fibromyalgia
CPT/HCPCS: 36415; 80053; 80061; 84439; 84443; 85025

== ENCOUNTER → 2020-11-05 | Outpatient (CLI) | payer MEDICARE, OTHER ==
[2020-11-05 15:01] LABS: Basophils # (A) 0.03 X 10*3/uL (0.00-0.10); Basophils % (A) 0.5 %; Eosinophils # (A) 0.14 X 10*3/uL (0.04-0.35); Eosinophils % (A) 2.2 %; HCT 42.5 % (37.2-46.3); Lymphocytes # (A) 1.36 X 10*3/uL (0.90-5.00); Lymphocytes % (A) 21.2 %; MCH 30.8 pg (27.0-32.0); MCHC 32.9 g/dL (32.0-37.0); MCV 93.6 fL (80.0-97.0); Mean Platelet Volume 9.1 fL (9.5-12.2); Monocytes % (A) 6.2 %; Neutrophils # (A) 4.47 X 10*3/uL (1.80-7.70); Neutrophils % (A) 69.6 %; Platelet Count 427 X 10*3/uL (140-440); RBC 4.54 X 10*6/uL (4.10-5.20); RDW 12.3 % (11.5-14.5); WBC 6.42 X 10*3/uL (4.50-10.00)
[2020-11-05 20:05] LABS: African American GFR (CKD) 90.3 (60.0-200.0); Albumin 4.3 g/dL (3.80-4.90); Albumin/Globulin Ratio 1.95 (1.60-3.17); BUN/Creat Ratio 23.75 Ratio (12.00-20.00); Calcium 9.4 mg/dL (8.7-10.3); Chol/HDL Ratio 3.77; Globulin 2.2 g/dL (1.6-3.3); LDL Cholesterol,Calculated 155.2 mg/dL (0.0-131.0); Non-African American GFR(CKD) 77.9 (60.0-200.0); Potassium 4.6 mmol/L (3.5-5.5); Total Bilirubin 0.6 mg/dL (0.2-1.2); Total Protein 6.5 g/dL (6.2-8.2); VLDL Calculation 24.8 mg/dL (5.00-40.00)
== END | disposition home or self-care (01) ==
LOC: LABWHC1 09:38
PROVIDERS: ATTEND Family Medicine
DX: Z00.00 Encounter for general adult medical examination without abnormal findings (principal)
CPT/HCPCS: 36415; 80053; 80061; 84443; 85025; 87522

== ENCOUNTER → 2020-11-25 | Outpatient (CLI) | payer MEDICARE, OTHER ==
--- NOTE | 2020-11-26 11:36 | MM ---
Reason for exam: screening (asymptomatic). Last mammogram was performed 3 years and 4 months ago. History: Patient is postmenopausal. Family history of breast cancer in grandmother at age 70. Retro-pectoral saline implants in both breasts, 1997. Took estrogen beginning at age 51. Took progesterone beginning at age 51. Physical Findings: A clinical breast exam by your physician is recommended on an annual basis and results should be correlated with mammographic findings. MG 3D Screen Mammo Imp/Cad Bilateral CC, MLO, and ID view(s) were taken. Prior study comparison: August 03, 2017, bilateral MG screening mammo implant/CAD. January 15, 2015, bilateral MG 3d diag mammo imp w/cad LONA. There are scattered fibroglandular densities. There is chronic nodularity in the left breast. There is no discrete abnormality. Bilateral subglandular implants redemonstrated. ASSESSMENT: Benign, BI-RAD 2 RECOMMENDATION: Routine screening mammogram of both breasts in 1 year.
== END | disposition home or self-care (01) ==
LOC: RADMAMWWP 09:41
PROVIDERS: ATTEND Family Medicine
DX: Z12.31 Encounter for screening mammogram for malignant neoplasm of breast (principal)
CPT/HCPCS: 77063; 77067

== ENCOUNTER → 2021-09-25 | Outpatient (CLI) | payer MEDICARE, OTHER ==
[2021-09-25 10:04] VITALS: BP 136/88; PULSE 66; RESP 18; TEMP 98.2
--- NOTE | 2021-09-25 13:41 | P.PAINPG ---
PQRS Measure Charge Sheet Comment: HISTORY OF PRESENT ILLNESS: 66 yr old female as a referral from Dr Sharp presents today w severe and chronic cervical pain x 3 mo secondary to DDD and facet arthropathy for evaluation. Pt states her pain level is currently at 6/10 in intensity, constant, localized in the mid to lower aspect of her cervical spine w intermittent pins & needle sensations in LUE. Pain is provoked by rotation of the cervical spine. Pain is palliated by PT to restart in September 2021, heat, ice, topicals, medications (Tylenol OTC, [place] prn), extension of LUE overhead, repositioning and rest. PMH: Fibromyalgia, GERD, OA, MDD PSH: ACDF C4-C7, Breast Augmentation, BL Hand Tendonectomy, Lumbar Surgery w screws & rods SH: 1/2 ppd (Quit 1977), +Cannabis use, Rare ETOH use. FH: Mo- Uterine CA. Fa- SKin Ca/ Fibromyalgia/ OA. All: See list Meds: See list REVIEW OF ORGAN SYSTEMS: CONSTITUTIONAL: No fevers or chills. No recent weight loss. NEUROLOGICAL: + numbness and tingling along the distal extremities. No seizure disorders or headaches. MUSCULOSKELETAL: + pain PSYCHIATRIC: Denies current depression or suicidal thoughts. Physical Examinations : Constitutional : Cooperative , not in acute distress . Neurologic : Cranial nerve II to XII intact. No focal neurological deficits. Psychiatric : alert & oriented x 3. Matching mood & appropriate affect. Judgment & insight intact. Musculoskeletal : Cervical Spine Motor strength in the deltoid and biceps: Normal right side. Normal Left side Motor strength biceps and the wrist extensors: Normal right side . Normal left side Motor strength in the triceps muscle: Normal right side. Normal left side Deep tendon reflexes: Normal at the biceps. Normal at Brachioradialis. Normal at triceps Vertebral body tenderness to deep palpation over C5, C6, C7 Cervical facet loading test: positive bilaterally over C6-C7 Spurling test: positive bilaterally Neck distraction test: positive bilaterally Homero sign: positive bilaterally Lumbar spine Motor strength lower extremities ,thigh and legs 5/5 Right side , 5/5 Left side Deep tendon reflexes : Normal Knee Jerk. Normal Ankle Jerk Vertebral body tenderness over Lumbar facet Loading Test: positive Right / positive Left Range of motion of the lumbar spine Flexion 30 degrees, extension 10 degrees Straight Leg Raise test: Left/ Right positive at degree Leslie test: positive right / positive left. Severe tenderness over the Sacroiliac joint on the Right / Left sides Gaenslen test: positive bilaterally Seated flexion test: positive bilaterally. Sacral spine : Severe tenderness over the Sacroiliac joint: right side / left side Range of motion: Flexion of the lumbar spine <60 degrees Range of motion: Extension of the l umbar spine <20 degrees Gaenslen's Test positive Jose De Jesus's Test positive Leslie test: positive right side / left side Thigh Thrust Test Sacral Thrust Test Imaging: X ray of the cervical spine, from 08/29/21 reviewed Assessment/ Plan : Cervical DDD Recommendation of MRI without contrast of the cervical spine re: M50.30. Pt is to participate in PT and may return to our clinic within 6 weeks for re evaluation and to explore additional treatment options, if necessary. All questions answered. I have spent greater than 30 minutes on patient care today. Dr Cleveland was available by phone for the evaluation of this patient. The time was used to review the medical records including relevant urine studies and Prescription history (MAPs), review of the available imaging, evaluation and examination of the patient, coordination of care with the medical staff and if applicable referring physicians, as well as creation of the medical record PQRS Narrative: Smoking Status Former smoker Hx Alcohol Use (MH) No Home Medications: Ambulatory Orders DULoxetine HCL [Cymbalta] 60 mg PO HS 11/13/13 HYDROcodone/APAP 7.5-325MG [[place] 7.5] 1 tab PO Q6HR PRN 11/13/13 DULoxetine HCL [Cymbalta] 30 mg PO DAILY 06/11/15 diphenhydrAMINE [Benadryl] 25 mg PO QID PRN 10/02/16 Controlled Substance Measures - Controlled Substance Measures Is patient prescribed a controlled substance at discharge?: No
== END ==
LOC: PNWHC3 08:04
PROVIDERS: ATTEND Specialist
DX: M54.12 Radiculopathy, cervical region (principal); Z98.890 Other specified postprocedural states; Z88.8 Allergy status to other drugs, medicaments and biological substances; Z87.891 Personal history of nicotine dependence; F32.9 Major depressive disorder, single episode, unspecified; M19.90 Unspecified osteoarthritis, unspecified site
CPT/HCPCS: 99211

== ENCOUNTER → 2021-10-29 | Outpatient (CLI) | payer MEDICARE, OTHER ==
--- NOTE | 2021-10-29 12:47 | MR ---
EXAMINATION TYPE: MR cervical spine wo con DATE OF EXAM: 10/29/2021 INDICATION: Patient age:Female; 66 years old; Reason for study: M80.30 cervical degenerative disc disease. Left arm/hand numbness COMPARISON: MRI 10/22/2011. TECHNIQUE: Multi planar, multi sequence imaging was performed utilizing: T1-weighted, T2-weighted, an d turbo inversion recovery imaging of the cervical spine. IV Contrast: None FINDINGS: Alignment: The cervical vertebral bodies have preserved heights. Alignment is within normal limits gi sondra patient positioning. Bones: Post fixation changes are seen throughout the cervical spine extending from C4 C5 C6 and C7. Cord: The spinal cord is unremarkable with regards to their signal intensity and morphology. Discs: Disc desiccation and postsurgical changes. C2-C3: No significant disc pathology. The spinal canal is patent. Bilateral facet and uncovertebral joint arthropathy are present with mild right neural foraminal stenosis. The left neural foramen is p atent. C3-C4: No significant disc pathology. The spinal canal is patent. Bilateral facet and uncovertebral joint arthropathy are present with mild left neural foraminal stenosis. The right neural foramen is p atent. C4-C5: The disc is surgically absent. The spinal canal is patent. Bilateral facet and uncovertebral joint arthropathy are present with mild bilateral neural foraminal stenosis. C5-C6: No significant disc pathology. The spinal canal is patent. No neural foraminal stenosis. C6-C7: No significant disc pathology. The spinal canal is patent. Bilateral facet and uncovertebral joint arthropathy are present with mild left neural foraminal stenosis. The right neural foramen is p atent. C7-T1: A disc osteophyte complex is present with mild spinal canal stenosis. Bilateral facet and unc overtebral joint arthropathy are present with moderate to severe bilateral neural foraminal stenosis. IMPRESSION: 1. No evidence for disc herniation or significant spinal canal stenosis. 2. Mild multilevel disc degeneration with associated osteoarthritic changes resulting in moderate to severe bilateral neural foraminal stenosis at C7-T1 and mild spinal canal stenosis at this level, fin jefersons have progressed from 2011.
== END | disposition home or self-care (01) ==
LOC: RADMRIMAIN 11:16
PROVIDERS: ATTEND Specialist
DX: M50.30 Other cervical disc degeneration, unspecified cervical region (principal)
CPT/HCPCS: 72141

== ENCOUNTER → 2021-11-10 | Outpatient (CLI) | payer OTHER, MEDICARE ==
[2021-11-10 15:05] LABS: ALT 16 U/L (8-44); AST 24 U/L (13-35); African American GFR (CKD) 74.7 (60.0-200.0); Albumin 4.3 g/dL (3.8-4.9); Alkaline Phosphatase 79 U/L (41-126); Blood Urea Nitrogen 19.9 mg/dL (9.0-27.0); Calcium 9.5 mg/dL (8.7-10.3); Carbon Dioxide 26.8 mmol/L (20.0-27.5); Chloride 104 mmol/L (96-109); Chol/HDL Ratio 3.08 Ratio; Globulin 2.6 g/dL (1.6-3.3); Glucose 104 mg/dL (70-110); LDL Cholesterol,Calculated 146.5 mg/dL (0.0-131.0); Non-African American GFR(CKD) 64.5 (60.0-200.0); Potassium 4.8 mmol/L (3.5-5.5); Sodium 141 mmol/L (135-145); Total Protein 6.9 g/dL (6.2-8.2); VLDL Calculation 17.68 mg/dL (5.00-40.00)
[2021-11-10 15:39] LABS: Basophils # (A) 0.04 X 10*3/uL (0.00-0.10); Basophils % (A) 0.5 %; Eosinophils # (A) 0.23 X 10*3/uL (0.04-0.35); HCT 41.6 % (37.2-46.3); HGB 13.9 g/dL (12.0-15.0); Immature Grans, Automated 0.3 %; Lymphocytes # (A) 1.54 X 10*3/uL (0.90-5.00); Lymphocytes % (A) 20.3 %; MCH 31.2 pg (27.0-32.0); MCHC 33.4 g/dL (32.0-37.0); MCV 93.5 fL (80.0-97.0); Monocytes # (A) 0.51 X 10*3/uL (0.20-1.00); Monocytes % (A) 6.7 %; NRBC Per 100 WBC 0 /100 WBCS (0.0-0.0); Neutrophils # (A) 5.23 X 10*3/uL (1.80-7.70); Neutrophils % (A) 69.2 %; Platelet Count 408 X 10*3/uL (140-440); RBC 4.45 X 10*6/uL (4.10-5.20); RDW 12.6 % (11.5-14.5); WBC 7.57 X 10*3/uL (4.50-10.00)
== END | disposition home or self-care (01) ==
LOC: LABWHC1 09:29
PROVIDERS: ATTEND Family Medicine
DX: Z00.00 Encounter for general adult medical examination without abnormal findings (principal)
CPT/HCPCS: 36415; 80053; 80061; 84443; 85025; 86803

== ENCOUNTER → 2021-11-28 | Outpatient (CLI) | payer OTHER, MEDICARE ==
--- NOTE | 2021-11-28 12:22 | BD ---
EXAMINATION TYPE: Axial Bone Density DATE OF EXAM: 11/28/2021 COMPARISON: NEW TO [facility] FOR A DEXA STUDY CLINICAL HISTORY: 66 years year old Female. ICD-10 CODE: Z780 POST RUBI WITHOUT HRT Height: 62.4 Weight: 171 FRAX RISK QUESTIONS: History of Fracture in Adulthood: YES Current Tobacco Use: YES, MARIJUANA FOR PAIN RISK FACTORS HISTORY OF: HX OF THUMB FX...WITH PINNING Surgery to Spine YES, WITH HARDWARE, AND CERVICAL REPAIR WITH HARDWARE, IN HER 50s Diet low in dairy products/other sources of calcium: YES Postmenopausal woman: YES, AT AGE 48 YRS OLD Take estrogen and/or progesterone medications: YES, IN THE PAST FOR ABOUT 1 YR Frequent falls: MULTIPLE BACK SURGERIES Poor Health: MULTIPLE SPINAL SURGERIES Hyperparathyroidism: NO Adrenal Insufficiency: NO MEDICATIONS: Additional Medications: BP MEDS, CYMBALTA, NSAIDS, PAIN MEDS, NORCO Additional History: MANY SPINAL SURGERIES AND CHRONIC PAIN, EXAM MEASUREMENTS: Bone mineral densitometry was performed using the [employer]. SPINE NOT SCANNED, MULTIPLE SURGERIES WITH HARDWARE Bone mineral density about the R hip (g/cm2): 0.813 Bone mineral density about the L hip (g/cm2): 0.778 T Score values are as follows: -----R Neck: -1.9 -----L Neck: -2.5 -----R Total: -1.5 -----L Total: -1.8 Bone mineral density FIRST DEXA STUDY.......BASELINE Bone mineral density about the L Wrist (g/cm2): 0.511 T Score values are as follows: -----Dist. R+U: -1.9 -----Prox. R+U: -1.7 -----Radius total: -1.9 Bone mineral density BASELINE STUDY FRAX%s: The graph provided illustrates a 20.8% chance for a major osteoporotic fx and a 4.5% chance f or the hips probability for fx in 10 years time. IMPRESSION: Osteopenia (T Score between -2.5 and -1). There is slightly increased risk of fracture and the patient may be considered for treatment. Re-Screen 2-5 years. NOTE: T-SCORE=SD OF THE YOUNG ADULT MEAN.
--- NOTE | 2021-12-01 09:48 | MM ---
Reason for Exam: Screening (asymptomatic). Last screening mammogram was performed 12 month(s) ago. Patient History: Menarche at age 13. First Full-Term at age 20. Postmenopausal. Estrogen, from age 51 until age 50. Progesterone, from age 51 until age 51. 1998, Bilateral Implants. Maternal grandmother had breast cancer, age 70. Risk Values: Jill 5 year model risk: 1.2%. NCI Lifetime model risk: 4.6%. Prior Study Comparison: 01/15/2015 Bilateral Diagnostic Mammogram, [facility]. 08/03/2017 Bilateral Screening Mammogram, [facility]. 11/25/2020 Bilateral Screening Mammogram, [facility]. Tissue Density: There are scattered fibroglandular densities. Findings: Analyzed By CAD. There is no suspicious group of microcalcifications or new suspicious mass in either breast. Chronic nodularity within left breast. Bilateral subglandular implants redemonstrated. No significant change from prior exams. Overall Assessment: Benign, BI-RAD 2 Management: Screening Mammogram of both breasts in 1 year. A clinical breast exam by your physician is recommended on an annual basis and results should be correlated with mammographic findings. Electronically signed and approved by: Jose Savage D.O.
== END | disposition home or self-care (01) ==
LOC: RADBDWWP 08:36
PROVIDERS: ATTEND Family Medicine
DX: Z12.31 Encounter for screening mammogram for malignant neoplasm of breast (principal); Z78.0 Asymptomatic menopausal state
CPT/HCPCS: 77063; 77067; 77080

== ENCOUNTER 2022-08-17 17:11 | Emergency (ER) | payer OTHER, MEDICARE ==
--- NOTE | 2022-08-17 17:27 | ED ---
General Adult HPI - General Source: patient, RN notes reviewed Mode of arrival: wheelchair Limitations: no limitations <Lissette Pryor - Last Filed: 08/22/22 18:02> - History of Present Illness -: hour(s) Location: neck Radiation: non-radiation Quality: aching Consistency: constant Improves with: immobilization Worsens with: movement Treatments Prior to Arrival: none <Mao Lynch - Last Filed: 08/28/22 06:34> - General Chief complaint: Dizziness Stated complaint: Dizziness, High BP Time Seen by Provider: 08/17/22 17:26 - History of Present Illness Initial comments: 67-year-old female with no significant past medical history presents the emergency department with a chief complaint of bradycardia. Patient reports that she checked her watch earlier today and was getting her readings between 40s to 50s. She is also complaining of accompanying dizziness. Denies chest pain or shortness of breath (Lissette Pryor) This patient is a 67-year-old woman who presents with complaints that she was having some neck pain, worse when she would attempt to turn her head. She also noted that her watch was telling her that her heart rate was low. The patient was not experiencing symptoms related to this. She did not have chest pain, dyspnea, syncope or any neurologic complaints. (Mao Lynch) - Related Data Home Medications Medication Instructions Recorded Confirmed DULoxetine HCL [Cymbalta] 60 mg PO HS 11/13/13 09/25/21 HYDROcodone/APAP 7.5-325MG [[place] 1 tab PO Q6HR PRN 11/13/13 09/25/21 7.5] DULoxetine HCL [Cymbalta] 30 mg PO DAILY 06/11/15 09/25/21 diphenhydrAMINE [Benadryl] 25 mg PO QID PRN 10/02/16 09/25/21 Previous Rx's Medication Instructions Recorded diazePAM [Valium] 5 mg PO Q8HR PRN 3 Days #12 tab 08/17/22 Allergies Allergy/AdvReac Type Severity Reaction Status Date / Time Neuromuscular Blockers, Allergy Unknown Facial Verified 09/25/21 10:32 Steroidal swelling [Steroidal Neuromuscular and red Blockers] blotches steroids Allergy hives Uncoded 09/25/21 10:32 Review of Systems ROS Other: All systems not noted in ROS Statement are negative. <SzuminLissette blandon - Last Filed: 08/22/22 18:02> ROS Other: All systems not noted in ROS Statement are negative. Constitutional: Denies: fever, chills Eyes: Denies: vision change Respiratory: Denies: cough, dyspnea Cardiovascular: Denies: chest pain, palpitations, edema, syncope Gastrointestinal: Denies: abdominal pain, nausea, vomiting Musculoskeletal: Reports: other (Neck pain) Skin: Denies: rash Neurological: Denies: headache, weakness, numbness, paresthesias <Mao Lynch - Last Filed: 08/28/22 06:34> ROS Statement: Those systems with pertinent positive or pertinent negative responses have been documented in the HPI. Past Medical History Past Medical History: Fibromyalgia, GERD/Reflux, Osteoarthritis (OA) Additional Past Medical History / Comment(s): CHRONIC BACK PAIN, Lower Back, RADIATES Down Both Legs History of Any Multi-Drug Resistant Organisms: None Reported Past Surgical History: Back Surgery, Breast Surgery, Orthopedic Surgery, Tubal L igation Additional Past Surgical History / Comment(s): BREAST AUGMENTATION, BUNIONECTOMY, LONA HAND SURGERY TOOK TENDON FROM ARM TO THUMB, LONA JOINT REPLACEMENTS THUMBS, ORIF RT THUMB SURGERY, BACK SURGERY X4 (CERVICAL AND LUMBAR W/ RODS AND SCREWS) PAIN CLINIC PROCEDURES Past Anesthesia/Blood Transfusion Reactions: Motion Sickness, Postoperative Nausea & Vomiting (PONV) Past Psychological History: Depression Smoking Status: Never smoker Past Alcohol Use History: None Reported Past Drug Use History: None Reported - Past Family History Mother Family Medical History: Cancer, Myocardial Infarction (MO) Additional Family Medical History / Comment(s): UTERINE Father Family Medical History: Cancer, Fibromyalgia, Osteoarthritis (OA) Additional Family Medical History / Comment(s): SKIN CANCER <JarenrejijamiaLissette - Last Filed: 08/22/22 18:02> General Exam Limitations: no limitations <JarenrejijamiaLissette - Last Filed: 08/22/22 18:02> Limitations: no limitations General appearance: alert, in no apparent distress Head exam: Present: atraumatic, normocephalic Eye exam: Present: normal appearance, PERRL, EOMI. Absent: scleral icterus, conjunctival injection, nystagmus ENT exam: Present: mucous membranes dry Neck exam: Present: normal inspection, tenderness (Tenderness at location of spasm), full ROM (Slightly limited rotation due to spasm), other (Marked spasm of the left paraspinal muscles into the left trapezius.). Absent: meningismus Respiratory exam: Present: normal lung sounds bilaterally. Absent: respiratory distress, wheezes, rales, rhonchi, stridor Cardiovascular Exam: Present: regular rate, normal rhythm, normal heart sounds. Absent: systolic murmur, diastolic murmur, rubs, gallop GI/Abdominal exam: Present: soft. Absent: distended, tenderness, guarding, rebound, rigid, mass Extremities exam: Present: normal inspection, normal capillary refill. Absent: pedal edema, calf tenderness Back exam: Present: normal inspection. Absent: CVA tenderness (R), CVA tenderness (L) Neurological exam: Present: alert, oriented X3, CN II-XII intact. Absent: motor sensory deficit Skin exam: Present: warm, dry, intact, normal color. Absent: rash <Mao Lynch - Last Filed: 08/28/22 06:34> - General Exam Comments Initial Comments: Visual Physical Exam Vital signs reviewed General: Well-appearing, nontoxic, no acute distress. Head: Normocephalic, atraumatic Eyes: PERRLA, EOMI ENT: Airway patent Chest: Nonlabored breathing Skin: No visual rash, normal skin tone Neuro: Alert and oriented 3 Musculoskeletal: No gross abnormalities (Lissette Pryor) Course Vital Signs 08/17/22 08/18/22 17:23 00:14 Temperature 97.8 F 97.3 F L Pulse Rate 59 L 62 Respiratory 18 16 Rate Blood Pressure 151/86 136/88 O2 Sat by Pulse 98 98 Oximetry EKG Findings - EKG Results: EKG: interpreted by ERMD, sinus rhythm EKG shows: bradycardia (Rate 59 bpm) - Blocks, [place], Hypertrophy, ST Abn: AV and intraventricular conduction: right bundle branch block (fixed/intermittent, complete/incomplete) (Incomplete) QRS axis and voltage: left axis deviation (-30 to -90) <Mao Lynch - Last Filed: 08/28/22 06:34> Medical Decision Making - Lab Data Result diagrams: 08/17/22 19:03 08/17/22 19:03 <Lissette Pryor - Last Filed: 08/22/22 18:02> - Lab Data Result diagrams: 08/17/22 19:03 08/17/22 19:03 <Mao Lynch - Last Filed: 08/28/22 06:34> - Medical Decision Making Was pt. sent in by a medical professional or institution (, [facility], SALES WAREHOUSE DRIVER, urgent care, hospital, or residential...) When possible be specific @ -[No] Did you speak to anyone other than the patient for history (EMS, parent, family, police, friend...)? What history was obtained from this source @ -[No] Did you review nursing and triage notes (agree or disagree)? Why? @ -[I reviewed and agree with nursing and triage notes] Were old charts reviewed (outside hosp., previous admission, EMS record, old EKG, old radiological studies, urgent care reports/EKG's, residential records)? Report findings @ -[No old charts were reviewed] Differential Diagnosis (chest pain, altered mental status, abdominal pain women, abdominal pain men, vaginal bleeding, weakness, fever, dyspnea, syncope, headache, dizziness, GI bleed, back pain, seizure, CVA, palpatations, mental health, musculoskeletal)? @ -[Differential Musculoskeletal Muscular strain, contusion, ligament sprain, fracture, arthritis, septic arthritis, bursitis, cellulitis, muscle spasm, nerve compression, DVT, arterial occlusion, herpes zoster, electrolyte abnormality, tumor.... This is not meant to be in all inclusive list EKG interpreted by me (3pts min.). @ -[As above] X-rays interpreted by me (1pt min.). @ -[None done] CT interpreted by me (1pt min.). @ -[None done] U/S interpreted by me (1pt. min.). @ -[None done] What testing was considered but not performed or refused? (CT, X-rays, U/S, labs)? Why? @ -[None] What meds were considered but not given or refused? Why? @ -[None] Did you discuss the management of the patient with other professionals (professionals i.e. [facility]ccorm[facility], SALES WAREHOUSE DRIVER, lab, RT, psych nurse, hospice social worker, refining supervisor, teacher, county records management officer, case assembler)? Give summary @ -[No] Was smoking cessation discussed for >3mins.? @ -[No] Was critical care preformed (if so, how long)? @ -[No] Were there social determinants of health that impacted care today? How? (Homelessness, low income, unemployed, alcoholism, drug addiction, transportation, low edu. Level, literacy, decrease access to med. care, [facility], rehab)? @ -[No] Was there de-escalation of care discussed even if they declined (Discuss DNR or withdrawal of care, Hospice)? DNR status @ -[No] What co-morbidities impacted this encounter? (DM, HTN, Smoking, COPD, CAD, Cancer, CVA, ARF, Chemo, Hep., AIDS, mental health diagnosis, sleep apnea, morbid obesity)? @ -[None] Was patient admitted / discharged? Hospital course, mention meds given and route, prescriptions, significant lab abnormalities, going to OR and other pertinent info. @ -[Patient has significant spasm of the paraspinal muscles. She is given medication and does have relief of symptoms here. We discussed the appropriate further care and follow-up as well as return parameters. Undiagnosed new problem with uncertain prognosis? @ -[No] Drug Therapy requiring intensive monitoring for toxicity (Heparin, Nitro, Insulin, Cardizem)? @ -[No] Were any procedures done? @ -[No] Diagnosis/symptom? @ -[Acute cervical spasm Acute, or Chronic, or Acute on Chronic? @ -[default] Uncomplicated (without systemic symptoms) or Complicated (systemic symptoms)? @ -[Uncomplicated Side effects of treatment? @ -[No] Exacerbation, Progression, or Severe Exacerbation? @ -[No] Poses a threat to life or bodily function? How? (Chest pain, [place], [place], pneumonia, PE, COPD, DKA, ARF, appy, cholecystitis, CVA, Diverticulitis, Homicidal, Suicidal, threat to staff... and all critical care pts) @ -[No] (Mao Lynch) - Lab Data Lab Results 08/17/22 08/17/22 08/17/22 Range/Units 19:03 19:03 19: WBC 7.2 (3.8-10.6) k/uL RBC 4.75 (3.80-5.40) m/uL Hgb 14.8 (11.4-16.0) gm/dL Hct 44.7 (34.0-46.0) % MCV 94.1 (80.0-100.0) fL MCH 31.3 (25.0-35.0) pg MCHC 33.2 (31.0-37.0) g/dL RDW 12.7 (11.5-15.5) % Plt Count 447 (150-450) k/uL MPV 6.9 Neutrophils % 70 % Lymphocytes % 21 % Monocytes % 5 % Eosinophils % 1 % Basophils % 0 % Neutrophils # 5.0 (1.3-7.7) k/uL Lymphocytes # 1.5 (1.0-4.8) k/uL Monocytes # 0.4 (0-1.0) k/uL Eosinophils # 0.1 (0-0.7) k/uL Basophils # 0.0 (0-0.2) k/uL PT 10.1 (9.0-12.0) sec INR 0.9 (<1.2) APTT 22.4 (22.0-30.0) sec Sodium 139 (137-145) mmol/L Potassium 4.4 (3.5-5.1) mmol/L Chloride 105 (98-107) mmol/L Carbon Dioxide 26 (22-30) mmol/L Anion Gap 8 mmol/L BUN 19 H (7-17) mg/dL Creatinine 0.71 (0.52-1.04) mg/dL Est GFR (CKD-EPI)AfAm >90 (>60 ml/min/1.73 sqM) Est GFR (CKD-EPI)NonAf 89 (>60 ml/min/1.73 sqM) Glucose 102 H (74-99) mg/dL Calcium 9.4 (8.4-10.2) mg/dL Magnesium 2.3 (1.6-2.3) mg/dL Total Bilirubin 0.6 (0.2-1.3) mg/dL AST 31 (14-36) U/L ALT 18 (4-34) U/L Alkaline Phosphatase 71 (38-126) U/L Troponin I (0.000-0.034) ng/mL Total Protein 7.4 (6.3-8.2) g/dL Albumin 4.4 (3.5-5.0) g/dL Influenza Type A (PCR) (Not Detectd) Influenza Type B (PCR) (Not Detectd) RSV (PCR) (Not Detectd) SARS-CoV-2 (PCR) (Not Detectd) 08/17/22 08/17/22 Range/Units 19:03 20:35 WBC (3.8-10.6) k/uL RBC (3.80-5.40) m/uL Hgb (11.4-16.0) gm/dL Hct (34.0-46.0) % MCV (80.0-100.0) fL MCH (25.0-35.0) pg MCHC (31.0-37.0) g/dL RDW (11.5-15.5) % Plt Count (150-450) k/uL MPV Neutrophils % % Lymphocytes % % Monocytes % % Eosinophils % % Basophils % % Neutrophils # (1.3-7.7) k/uL Lymphocytes # (1.0-4.8) k/uL Monocytes # (0-1.0) k/uL Eosinophils # (0-0.7) k/uL Basophils # (0-0.2) k/uL PT (9.0-12.0) sec INR (<1.2) APTT (22.0-30.0) sec Sodium (137-145) mmol/L Potassium (3.5-5.1) mmol/L Chloride (98-107) mmol/L Carbon Dioxide (22-30) mmol/L Anion Gap mmol/L BUN (7-17) mg/dL Creatinine (0.52-1.04) mg/dL Est GFR (CKD-EPI)AfAm (>60 ml/min/1.73 sqM) Est GFR (CKD-EPI)NonAf (>60 ml/min/1.73 sqM) Glucose (74-99) mg/dL Calcium (8.4-10.2) mg/dL Magnesium (1.6-2.3) mg/dL Total Bilirubin (0.2-1.3) mg/dL AST (14-36) U/L ALT (4-34) U/L Alkaline Phosphatase (38-126) U/L Troponin I <0.012 (0.000-0.034) ng/mL Total Protein (6.3-8.2) g/dL Albumin (3.5-5.0) g/dL Influenza Type A (PCR) Not Detected (Not Detectd) Influenza Type B (PCR) Not Detected (Not Detectd) RSV (PCR) Not Detected (Not Detectd) SARS-CoV-2 (PCR) Not Detected (Not Detectd) Disposition Is patient prescribed a controlled substance at d/c from ED?: No <Lissette Pryor - Last Filed: 08/22/22 18:02> <Mao Lynch - Last Filed: 08/28/22 06:34> Clinical Impression: Spasm of cervical paraspinous muscle Disposition: HOME SELF-CARE Condition: Good Instructions (If sedation given, give patient instructions): Spasmodic Torticollis (ED), Dizziness (ED) Prescriptions: diazePAM [Valium] 5 mg PO Q8HR PRN 3 Days #12 tab PRN Reason: Spasms Referrals: Froilan Lopez MD [Primary Care Provider] - 1-2 days
--- NOTE | 2022-08-17 18:44 | XR ---
EXAMINATION TYPE: XR chest 2V DATE OF EXAM: 08/17/2022 6:23 PM COMPARISON: Chest radiographs from 09/13/2009 TECHNIQUE: XR chest 2V Frontal and lateral views of the chest. CLINICAL INDICATION:Female, 67 years old with history of bradycardia; FINDINGS: Lungs/Pleura: There is no evidence of pleural effusion, focal consolidation, or pneumothorax. Pulmonary vascularity: Unremarkable. Heart/mediastinum: Cardiomediastinal silhouette is unremarkable. Musculoskeletal: No acute osseous pathology. There is fixation hardware in the lower cervical spine. IMPRESSION: No acute cardiopulmonary disease/process.
[2022-08-17 19:29] LABS: Basophils % (A) 0 %; Eosinophils # (A) 0.1 k/uL (0-0.7); Eosinophils % (A) 1 %; HCT 44.7 % (34.0-46.0); HGB 14.8 gm/dL (11.4-16.0); Lymphocytes # (A) 1.5 k/uL (1.0-4.8); Lymphocytes % (A) 21 %; MCH 31.3 pg (25.0-35.0); MCHC 33.2 g/dL (31.0-37.0); MCV 94.1 fL (80.0-100.0); Mean Platelet Volume 6.9; Monocytes # (A) 0.4 k/uL (0-1.0); Monocytes % (A) 5 %; Neutrophils % (A) 70 %; Platelet Count 447 k/uL (150-450); RBC 4.75 m/uL (3.80-5.40); RDW 12.7 % (11.5-15.5); WBC 7.2 k/uL (3.8-10.6)
[2022-08-17 19:46] LABS: ALT 18 U/L (4-34); AST 31 U/L (14-36); African American GFR (CKD) >90 (>60 ml/min/1.73 sqM); Albumin 4.4 g/dL (3.5-5.0); Alkaline Phosphatase 71 U/L (38-126); Anion Gap 8 mmol/L; Blood Urea Nitrogen 19 mg/dL (7-17); Calcium 9.4 mg/dL (8.4-10.2); Carbon Dioxide 26 mmol/L (22-30); Chloride 105 mmol/L (98-107); Glucose 102 mg/dL (74-99); Magnesium 2.3 mg/dL (1.6-2.3); Non-African American GFR(CKD) 89 (>60 ml/min/1.73 sqM); Potassium 4.4 mmol/L (3.5-5.1); Sodium 139 mmol/L (137-145); Total Bilirubin 0.6 mg/dL (0.2-1.3); Total Protein 7.4 g/dL (6.3-8.2)
[2022-08-17 19:51] LABS: INR 0.9 (<1.2); Partial Thromboplastin Time 22.4 sec (22.0-30.0); Prothrombin Time 10.1 sec (9.0-12.0)
[2022-08-17] MEDS ORDERED: SODIUM CHLORIDE 0.9% 1,000 ML IV ONE (21:23)
[2022-08-18 00:18] VITALS: BP 136/88; PULSE 62; RESP 16; TEMP 97.3
== END 2022-08-18 00:19 | disposition home or self-care (01) ==
LOC: EC 17:11
DX: M62.838 Other muscle spasm (principal); F32.A Depression, unspecified; Z79.899 Other long term (current) drug therapy; Z88.8 Allergy status to other drugs, medicaments and biological substances; Z20.822 Contact with and (suspected) exposure to COVID-19
CPT/HCPCS: 99284 ×2; 96374 ×2; 96361 ×2; 36415; 93005; 80053; 83735; 84484; 85025; 85610; 85730; 87636; 71046; J3360

== ENCOUNTER → 2022-12-14 | Outpatient (CLI) | payer OTHER, MEDICARE ==
--- NOTE | 2022-12-15 18:47 | MM ---
Reason for Exam: Hx of breast augmentation, asymptomatic. Last screening mammogram was performed 12 month(s) ago. Patient History: Menarche at age 13. First Full-Term at age 20. Postmenopausal. Estrogen, from age 51 until age 50. Progesterone, from age 51 until age 51. 1998, Bilateral Implants. Maternal grandmother had breast cancer, age 70. Risk Values: Jill 5 year model risk: 1.2%. NCI Lifetime model risk: 4.4%. Prior Study Comparison: 08/03/2017 Bilateral Screening Mammogram, [facility]. 11/25/2020 Bilateral Screening Mammogram, [facility]. 11/28/2021 Bilateral MG 3D screen mammo imp/cad., [facility]. Tissue Density: There are scattered fibroglandular densities. Findings: Analyzed By CAD. There are bilateral prepectoral saline implants. There is no suspicious group of microcalcifications or new suspicious mass in either breast. Overall Assessment: Negative, BI-RAD 1 Management: Screening Mammogram of both breasts in 1 year. . Patient should continue monthly self-breast exams. A clinical breast exam by your physician is recommended on an annual basis. This exam should not preclude additional follow-up of suspicious palpable abnormalities. Note on Jill scores and lifetime risk: 1. A Jill score greater than 3% is considered moderate risk. If this is the case, consider specialist referral to assess eligibility for a risk reducing agent. 2. If overall lifetime risk for the development of breast cancer is 20% or higher, the patient may qualify for future screening with alternating mammogram and breast MRI. Electronically signed and approved by: Linda Durham M.D. Radiologist
== END | disposition home or self-care (01) ==
LOC: RADMAMWWP 13:40
PROVIDERS: ATTEND Family Medicine
DX: Z12.31 Encounter for screening mammogram for malignant neoplasm of breast (principal); Z80.3 Family history of malignant neoplasm of breast; Z78.0 Asymptomatic menopausal state
CPT/HCPCS: 77063; 77067

== ENCOUNTER → 2023-12-21 | Outpatient (CLI) | payer MEDICARE, OTHER ==
--- NOTE | 2023-12-21 09:34 | MM ---
Reason for Exam: Screening (asymptomatic). Last mammogram was performed 1 year(s) and 1 month(s) ago. Patient History: Menarche at age 13. First Full-Term at age 20. Postmenopausal. Estrogen, from age 51 until age 51. Progesterone, from age 51 until age 51. 1998, Bilateral Implants. Maternal grandmother had breast cancer, age 70. Risk Values: Jill 5 year model risk: 1.2%. NCI Lifetime model risk: 4.2%. Prior Study Comparison: 11/25/2020 Bilateral Screening Mammogram, [facility]. 11/28/2021 Bilateral MG 3D screen mammo imp/cad., [facility]. 12/14/2022 Bilateral MG 3D screen mammo imp/cad., [facility]. Tissue Density: The breasts are heterogeneously dense, which may obscure small masses. Findings: Analyzed By CAD. There is no suspicious group of microcalcifications or new suspicious mass in either breast. Bilateral breast implant surgery noted. Stable chronic nodularity left breast unchanged from multiple prior exams. Overall Assessment: Benign, BI-RAD 2 Management: Screening Mammogram of both breasts in 1 year. . Patient should continue monthly self-breast exams. A clinical breast exam by your physician is recommended on an annual basis. This exam should not preclude additional follow-up of suspicious palpable abnormalities. Note on Jill scores and lifetime risk: 1. A Jill score greater than 3% is considered moderate risk. If this is the case, consider specialist referral to assess eligibility for a risk reducing agent. 2. If overall lifetime risk for the development of breast cancer is 20% or higher, the patient may qualify for future screening with alternating mammogram and breast MRI. [facility], , 12/21/2023 9:31 AM. Electronically signed and approved by: Spencer Enciso M.D. Radiologis
--- NOTE | 2023-12-22 21:33 | BD ---
EXAMINATION TYPE: Axial Bone Density DATE OF EXAM: 12/21/2023 CLINICAL HISTORY: 68 years old Female. ICD-10 CODE: Z78.0 ASYMP [place] STATE , Z78.0 Height: 64 Weight: 153.7 FRAX RISK QUESTIONS: Alcohol (3 or more units per day): no Family History (Parent hip fracture): no Glucocorticoids (More than 3mos): no (Ex: prednisone, prednisolone, methylprednisolone, dexamethasone, and hydrocortisone). History of Fracture in Adulthood: yes Secondary Osteoporosis: 1. Type 1 Diabetes: no 2. Hyperthyroidism: no 3. Menopause before 45: yes 4. Malnutrition: no 5. Chronic liver disease: no Rheumatoid Arthritis: no Current Tobacco Use: no RISK FACTORS HISTORY OF: History of Wrist Fracture: yes /right When: 5 years ago Surgery to Spine/Hip(right/left)/Wrist (right/left): back x5- lumbar EXAM MEASUREMENTS: Bone mineral densitometry was performed using the [employer] System. Bone mineral density about the R hip (g/cm2): 0.779 Bone mineral density about the L hip (g/cm2): 0.764 T Score values are as follows: -----R Neck: -2.0 -----L Neck: -2.3 -----R Total: -1.8 -----L Total: -1.8 Z Score values are as follows: -----R Neck: -0.6 -----L Neck: -0.8 -----R Total: -0.6 -----L Total: -0.7 Bone mineral density has: decreased -2.9 % since study of: 11.28.2021 Bone mineral density about the L Wrist (g/cm2): 0.515 T Score values are as follows: -----Dist. R+U: -2.6 -----Prox. R+U: -2.4 -----Radius total: -2.6 Z Score values are as follows: -----Dist. R+U: -1.0 -----Prox. R+U: -0.8 -----Radius total: -1.0 Bone mineral density has: decreased -8.4 % since study of: 11.28.2021 FRAX%s: The graph provided illustrates a 21.0% chance for a major osteoporotic fx and a 4.4% chance f or the hips probability for fx in 10 years time. IMPRESSION: Osteoporosis (T Score less than -2.5). There is increased fracture risk and therapy is usually indicated based on age. Re-Screen 1-2 years. NOTE: T-SCORE=SD OF THE YOUNG ADULT MEAN. [facility], , 12/22/2023 9:31 PM
== END | disposition home or self-care (01) ==
LOC: RADBDWWP 08:35
PROVIDERS: ATTEND Family Medicine
DX: Z12.31 Encounter for screening mammogram for malignant neoplasm of breast (principal); R92.333 Mammographic heterogeneous density, bilateral breasts; M81.0 Age-related osteoporosis without current pathological fracture; Z78.0 Asymptomatic menopausal state; Z80.3 Family history of malignant neoplasm of breast
CPT/HCPCS: 77063; 77067; 77080

== ENCOUNTER → 2023-12-22 | Outpatient (CLI) | payer OTHER, MEDICARE ==
[2023-12-22 15:07] LABS: Basophils # (A) 0.04 X 10*3/uL (0.00-0.10); Basophils % (A) 0.7 %; Eosinophils # (A) 0.09 X 10*3/uL (0.04-0.35); Eosinophils % (A) 1.5 %; HCT 39.7 % (37.2-46.3); HGB 13.1 g/dL (12.0-15.0); Lymphocytes # (A) 1.57 X 10*3/uL (0.90-5.00); Lymphocytes % (A) 25.9 %; MCH 31.3 pg (27.0-32.0); MCV 94.7 FL (80.0-97.0); Mean Platelet Volume 8.9 FL (9.5-12.2); Monocytes # (A) 0.43 X 10*3/uL (0.20-1.00); Monocytes % (A) 7.1 %; NRBC Per 100 WBC 0 X 10*3/uL (0.00-0.01); Neutrophils # (A) 3.92 X 10*3/uL (1.80-7.70); Neutrophils % (A) 64.6 %; Platelet Count 400 X 10*3/uL (140-440); RBC 4.19 X 10*6/uL (4.10-5.20); RDW 12.4 % (11.5-14.5); WBC 6.06 X 10*3/uL (4.50-10.00)
[2023-12-22 15:23] LABS: BUN/Creat Ratio 19.62 Ratio (12.00-20.00); Blood Urea Nitrogen 15.7 mg/dL (9.0-27.0); Chloride 106 mmol/L (96-109); Chol/HDL Ratio 3.45 Ratio; Glucose 109 mg/dL (70-110); LDL Cholesterol,Calculated 164.1 mg/dL (0.0-131.0); Potassium 4.4 mmol/L (3.5-5.5); Sodium 143 mmol/L (135-145); VLDL Calculation 15.64 mg/dL (5.00-40.00)
[2023-12-22 15:24] LABS: ALT 11 U/L (8-44); AST 19 U/L (13-35); Albumin 4.3 g/dL (3.8-4.9); Albumin/Globulin Ratio 2.26 Ratio (1.60-3.17); Alkaline Phosphatase 63 U/L (41-126); Calcium 9.5 mg/dL (8.7-10.3); Carbon Dioxide 26.8 mmol/L (21.6-31.8); Globulin 1.9 g/dL (1.6-3.3); Total Bilirubin 0.5 mg/dL (0.3-1.2); Total Protein 6.2 g/dL (6.2-8.2)
== END | disposition home or self-care (01) ==
LOC: LABWHC1 08:40
PROVIDERS: ATTEND Family Medicine
DX: Z00.00 Encounter for general adult medical examination without abnormal findings (principal); Z13.220 Encounter for screening for lipoid disorders; I10 Essential (primary) hypertension; M43.17 Spondylolisthesis, lumbosacral region; E66.3 Overweight; Z68.25 Body mass index [BMI] 25.0-25.9, adult; Z79.899 Other long term (current) drug therapy
CPT/HCPCS: 36415; 80053; 80061; 84443; 85025

== ENCOUNTER → 2024-01-19 | Outpatient (CLI) | payer MEDICARE, OTHER ==
--- NOTE | 2024-01-19 12:23 | XR ---
EXAMINATION TYPE: XR lumbar spine 3V DATE OF EXAM: 01/19/2024 11:24 AM COMPARISON: 04/30/2015 CLINICAL INDICATION: Female, 68 years old with history of S39.012A STRAIN OF MUSCLE, FASCIA AND TENDO N OF LO, , pain FINDINGS: Levoconvex scoliosis centered at the thoracolumbar junction has worsened compared to 2016. Cholecyste ctomy clips. Patient status post L5-S1 posterior fusion. Mild to moderate degenerative disc disease s cattered throughout with variable disc space narrowing, disc desiccation, and endplate spondylosis. H ypertrophic facet arthropathy within the nonfused levels of the lumbar spine. Trace grade 1 retrolist hesis T12-L1 and L1-L2. Grade 1 anterolisthesis L4-L5. Vertebral body heights are preserved. IMPRESSION: 1. Patient status post L5-S1 posterior fusion. 2. There is hypertrophic facet arthropathy throughout the lumbar spine with slight worsening degenera tive grade 1 anterolisthesis above the fusion at L4-L5. 3. Variable mild to moderate multilevel degenerative disc disease, progressed from 2016. 4. Additional degenerative trace grade 1 retrolisthesis T12-L1 and L1-L2. 5. Worsening levoconvex scoliotic curvature centered at the thoracolumbar junction. [facility], , 01/19/2024 12:20 PM
== END | disposition home or self-care (01) ==
LOC: RADXRMAIN 11:09
PROVIDERS: ATTEND Family Medicine
DX: M47.816 Spondylosis without myelopathy or radiculopathy, lumbar region (principal); M43.16 Spondylolisthesis, lumbar region; M51.369 Other intervertebral disc degeneration, lumbar region without mention of lumbar back pain or lower extremity pain; S39.012A Strain of muscle, fascia and tendon of lower back, initial encounter; Z98.1 Arthrodesis status
CPT/HCPCS: 72100

== ENCOUNTER 2024-01-26 16:04 | Emergency (ER) | payer OTHER, MEDICARE ==
[2024-01-26] MEDS: MORPHINE SULFATE 4 MG/ML SYRINGE IVP STA (16:32)
[2024-01-26 16:38] LABS: Basophils % (A) 0 %; Eosinophils # (A) 0.1 k/uL (0-0.7); Eosinophils % (A) 2 %; HCT 40.5 % (34.0-46.0); HGB 13.4 gm/dL (11.4-16.0); Lymphocytes # (A) 2.5 k/uL (1.0-4.8); Lymphocytes % (A) 30 %; MCV 94.1 fL (80.0-100.0); Mean Platelet Volume 6.4; Monocytes # (A) 0.4 k/uL (0-1.0); Monocytes % (A) 5 %; Neutrophils # (A) 5.1 k/uL (1.3-7.7); Neutrophils % (A) 61 %; Platelet Count 468 k/uL (150-450); RBC 4.31 m/uL (3.80-5.40); RDW 12.2 % (11.5-15.5); WBC 8.3 k/uL (3.8-10.6)
[2024-01-26 16:57] LABS: ALT 14 U/L (4-34); AST 22 U/L (14-36); African American GFR (CKD) >90 (>60 ml/min/1.73 sqM); Albumin 4.3 g/dL (3.5-5.0); Alkaline Phosphatase 62 U/L (38-126); Anion Gap 6 mmol/L; Blood Urea Nitrogen 16 mg/dL (7-17); Calcium 9.4 mg/dL (8.4-10.2); Carbon Dioxide 29 mmol/L (22-30); Chloride 106 mmol/L (98-107); Glucose 96 mg/dL (74-99); Non-African American GFR(CKD) >90 (>60 ml/min/1.73 sqM); Sodium 141 mmol/L (137-145); Total Bilirubin 0.5 mg/dL (0.2-1.3); Total Protein 6.4 g/dL (6.3-8.2)
--- NOTE | 2024-01-26 17:10 | CT ---
EXAMINATION TYPE: CT abdomen pelvis wo con DATE OF EXAM: 01/26/2024 4:47 PM COMPARISON: None. CLINICAL INDICATION: Female, 68 years old with history of Left flank pain, Left side flank pain. TECHNIQUE: Axial images were obtained from above the diaphragm to the pubic rami in the axial plane a t 5 mm thick sections. Reconstructed images are reviewed on the computer in the coronal plane. CONTRAST: mL of . Study performed without Oral Contrast DLP: 446.4 mGycm, Automated exposure control for dose reduction was used. FINDINGS: Limited CT sections are obtained the lung bases. The lung bases are clear. Bilateral breast prosthe ses are present CT ABDOMEN: Liver: Normal Spleen: Normal Pancreas: Normal Adrenal glands: The adrenal glands are normal. Gallbladder: Surgically absent Kidneys: No masses are evident. No hydronephrosis is present. No cysts are present. No renal stone s evident Aorta: Normal Inferior vena cava: Normal. CT PELVIS: Loops of bowel within the abdomen and pelvis are normal. Scattered diverticula are present without a cute diverticulitis studies without oral contrast limiting evaluation. No adjacent inflammatory [place] es evident. Some mild wall thickening through the proximal jejunum within the left upper quadrant may be present. No adjacent suspicious inflammatory changes present. Correlate for mild jejunitis. The s tudy is without oral contrast limiting evaluation Appendix: Normal as visualized. Urinary bladder: Decompressed with limited evaluation Genitourinary structures: Uterus and adnexa appear normal Osseous structures: No suspicious lytic or sclerotic lesions. IMPRESSION: 1. Diverticulosis without diverticulitis. 2. Some mild wall thickening through the proximal jejunum may be present. No adjacent suspicious infl ammatory changes present. Correlate for mild jejunitis upper quadrant [facility], , 01/26/2024 5:08 PM
[2024-01-26 18:01] VITALS: RESP 18
[2024-01-26 18:13] LABS: Appearance,Urine Clear (Clear); Bilirubin,Urine Negative (Negative); Blood,Urine Negative (Negative); Color,Urine Colorless; Glucose,Urine (UA) Negative (Negative); Ketones,Urine Negative (Negative); Leukocyte Esterase,Urine Negative (Negative); Nitrite,Urine Negative (Negative); PH, Urine 6.5 (5.0-8.0); Protein,Urine Negative (Negative); Specific Gravity,Urine 1.008 (1.001-1.035); Urobilinogen,Urine <2.0 mg/dL (<2.0)
--- NOTE | 2024-01-26 18:39 | ED ---
Female Urogenital HPI - General Chief complaint: Urogenital Stated complaint: urogenital Time Seen by Provider: 01/26/24 16:13 Source: patient Mode of arrival: ambulatory Limitations: no limitations - History of Present Illness Initial comments: 68-year-old female presenting with chief complaint of flank pain. Patient is experiencing left-sided flank pain. This has been ongoing for about 3 weeks. She was sent in by her PCP Dr. Lopez. She was seen in the office today and her urine showed hematuria. Patient is having no dysuria or obvious hematuria. No fevers or chills. She does get some nausea from the pain. Pain is worse with range of motion and different positions. She does have history of back pain, currently takes [place]. - Related Data Home Medications Medication Instructions Recorded Confirmed DULoxetine HCL [Cymbalta] 60 mg PO HS 11/13/13 09/25/21 HYDROcodone/APAP 7.5-325MG [[place] 1 tab PO Q6HR PRN 11/13/13 09/25/21 7.5] DULoxetine HCL [Cymbalta] 30 mg PO DAILY 06/11/15 09/25/21 diphenhydrAMINE [Benadryl] 25 mg PO QID PRN 10/02/16 09/25/21 Previous Rx's Medication Instructions Recorded diazePAM [Valium] 5 mg PO Q8HR PRN 3 Days #12 tab 08/17/22 Allergies Allergy/AdvReac Type Severity Reaction Status Date / Time Neuromuscular Blockers, Allergy Unknown Facial Verified 01/26/24 16:09 Steroidal swelling [Steroidal Neuromuscular and red Blockers] blotches steroids Allergy hives Uncoded 01/26/24 16:09 Review of Systems ROS Statement: Those systems with pertinent positive or pertinent negative responses have been documented in the HPI. ROS Other: All systems not noted in ROS Statement are negative. Past Medical History Past Medical History: Fibromyalgia, GERD/Reflux, Osteoarthritis (OA) Additional Past Medical History / Comment(s): CHRONIC BACK PAIN, Lower Back, RADIATES Down Both Legs History of Any Multi-Drug Resistant Organisms: None Reported Past Surgical History: Back Surgery, Breast Surgery, Orthopedic Surgery, Tubal Ligation Additional Past Surgical History / Comment(s): BREAST AUGMENTATION, BUNIONECTOMY, LONA HAND SURGERY TOOK TENDON FROM ARM TO THUMB, LONA JOINT REPLACEMENTS THUMBS, ORIF RT THUMB SURGERY, BACK SURGERY X4 (CERVICAL AND LUMBAR W/ RODS AND SCREWS) PAIN CLINIC PROCEDURES Past Anesthesia/Blood Transfusion Reactions: Motion Sickness, Postoperative Nausea & Vomiting (PONV) Past Psychological History: Depression Smoking Status: Never smoker Past Alcohol Use History: None Reported Past Drug Use History: Marijuana - Past Family History Mother Family Medical History: Cancer, Myocardial Infarction ([place]) Additional Family Medical History / Comment(s): UTERINE Father Family Medical History: Cancer, Fibromyalgia, Osteoarthritis (OA) Additional Family Medical History / Comment(s): SKIN CANCER General Exam Limitations: no limitations General appearance: alert, in no apparent distress Head exam: Present: atraumatic, normocephalic, normal inspection Eye exam: Present: normal appearance, EOMI Neck exam: Present: normal inspection. Absent: meningismus Respiratory exam: Present: normal lung sounds bilaterally. Absent: respiratory distress, wheezes, rales, rhonchi, stridor Cardiovascular Exam: Present: regular rate, normal rhythm, normal heart sounds. Absent: systolic murmur, diastolic murmur, rubs, gallop, clicks GI/Abdominal exam: Present: soft. Absent: distended, tenderness, guarding, rebound, rigid Back exam: Present: normal inspection. Absent: CVA tenderness (R), CVA tenderness (L) Neurological exam: Present: alert, oriented X3 Psychiatric exam: Present: normal affect, normal mood Skin exam: Present: warm, dry, normal color Course Vital Signs 01/26/24 01/26/24 01/26/24 16:10 17:59 18:56 Temperature 98.3 F 98 F 98.1 F Pulse Rate 59 L 56 L 58 L Respiratory 20 18 18 Rate Blood Pressure 144/80 117/75 120/78 O2 Sat by Pulse 99 99 99 Oximetry Medical Decision Making - Medical Decision Making Was pt. sent in by a medical professional or institution (, PA, COMPUTER TECHNOLOGY INSTRUCTOR, urgent care, hospital, or group home...) When possible be specific @ -PCP Did you speak to anyone other than the patient for history (EMS, parent, family, police, friend...)? What history was obtained from this source @ -No Did you review nursing and triage notes (agree or disagree)? Why? @ -I reviewed and agree with nursing and triage notes Were old charts reviewed (outside hosp., previous admission, EMS record, old EKG, old radiological studies, urgent care reports/EKG's, group home records)? Report findings @ -No old charts were reviewed Differential Diagnosis (chest pain, altered mental status, abdominal pain women, abdominal pain men, vaginal bleeding, weakness, fever, dyspnea, syncope, headache, dizziness, GI bleed, back pain, seizure, CVA, palpatations, mental health, musculoskeletal)? @ - [facility] Differential Back Pain: Strain, zoster, cauda equina syndrome, epidural abscess, vertebral osteomyelitis, discitis, fracture, subluxation, disc herniation, DJD, spinal stenosis, dissection, AAA, pancreatitis, peptic ulcer disease, pyelonephritis, kidney stone this is not meant to be an all-inclusive list. EKG interpreted by me (3pts min.). @ -As above X-rays interpreted by me (1pt min.). @ -None done CT interpreted by me (1pt min.). @ -CT shows diverticulosis without diverticulitis. Some mild wall thickening through the proximal jejunum may be present. No adjacent suspicious inflammatory changes present. Correlate for mild jejunitis upper quadrant U/S interpreted by me (1pt. min.). @ -None done What testing was considered but not performed or refused? (CT, X-rays, U/S, labs)? Why? @ -None What meds were considered but not given or refused? Why? @ -None Did you discuss the management of the patient with other professionals (professionals i.e. , PA, COMPUTER TECHNOLOGY INSTRUCTOR, lab, RT, psych nurse, executive secretary social welfare, business lawyer, teacher, precinct commanding officer, test case developer)? Give summary @ -No Was smoking cessation discussed for >3mins.? @ -No Was critical care preformed (if so, how long)? @ -No Were there social determinants of health that impacted care today? How? (Homelessness, low income, unemployed, alcoholism, drug addiction, transportation, low edu. Level, literacy, decrease access to med. care, penitentiary, rehab)? @ -No Was there de-escalation of care discussed even if they declined (Discuss DNR or withdrawal of care, Hospice)? DNR status @ -No What co-morbidities impacted this encounter? (DM, HTN, Smoking, COPD, CAD, Cancer, CVA, ARF, Chemo, Hep., AIDS, mental health diagnosis, sleep apnea, morbid obesity)? @ -None Was patient admitted / discharged? Hospital course, mention meds given and route, prescriptions, significant lab abnormalities, going to OR and other pertinent info. @ -68-year-old female presenting with chief complaint of left-sided flank pain. History and physical examination are conducted. Platelets are mildly elevated at 468, otherwise labs are essentially unremarkable. CT is negative for obstructive uropathy. There is some mild inflammation of the jejunum noted. Pain is worse with different positions and range of motion. More likely musculoskeletal in nature. Patient is educated on today's findings and treatment plan. Patient has had multiple back surgeries in the past, she is instructed to follow-up with her surgeons office. Follow-up with PCP. Report back to ER with any new or worsening symptoms. Discussed return parameters and answered all questions. Patient conveyed verbal understanding and agreed to the plan. I discussed this case in detail with my attending Dr. Forman Undiagnosed new problem with uncertain prognosis? @ -No Drug Therapy requiring intensive monitoring for toxicity (Heparin, Nitro, Insulin, Cardizem)? @ -No Were any procedures done? @ -No Diagnosis/symptom? @ -Flank pain Acute, or Chronic, or Acute on Chronic? @ -Acute Uncomplicated (without systemic symptoms) or Complicated (systemic symptoms)? @ -Uncomplicated Side effects of treatment? @ -No Exacerbation, Progression, or Severe Exacerbation? @ -No Poses a threat to life or bodily function? How? (Chest pain, [place], [place], pneumonia, PE, COPD, DKA, ARF, appy, cholecystitis, CVA, Diverticulitis, Homicidal, Suicidal, threat to staff... and all critical care pts) @ -Low likelihood - Lab Data Result diagrams: 01/26/24 16:26 01/26/24 16:26 Lab Results 01/26/24 01/26/24 01/26/24 Range/Units 16:26 16:26 16:26 WBC 8.3 (3.8-10.6) k/uL RBC 4.31 (3.80-5.40) m/uL Hgb 13.4 (11.4-16.0) gm/dL Hct 40.5 (34.0-46.0) % MCV 94.1 (80.0-100.0) fL MCH 31.0 (25.0-35.0) pg MCHC 33.0 (31.0-37.0) g/dL RDW 12.2 (11.5-15.5) % Plt Count 468 H (150-450) k/uL MPV 6.4 Neutrophils % 61 % Lymphocytes % 30 % Monocytes % 5 % Eosinophils % 2 % Basophils % 0 % Neutrophils # 5.1 (1.3-7.7) k/uL Lymphocytes # 2.5 (1.0-4.8) k/uL Monocytes # 0.4 (0-1.0) k/uL Eosinophils # 0.1 (0-0.7) k/uL Basophils # 0.0 (0-0.2) k/uL Sodium 141 (137-145) mmol/L Potassium 4.0 (3.5-5.1) mmol/L Chloride 106 (98-107) mmol/L Carbon Dioxide 29 (22-30) mmol/L Anion Gap 6 mmol/L BUN 16 (7-17) mg/dL Creatinine 0.69 (0.52-1.04) mg/dL Est GFR (CKD-EPI)AfAm >90 (>60 ml/min/1.73 sqM) Est GFR (CKD-EPI)NonAf >90 (>60 ml/min/1.73 sqM) Glucose 96 (74-99) mg/dL Calcium 9.4 (8.4-10.2) mg/dL Total Bilirubin 0.5 (0.2-1.3) mg/dL AST 22 (14-36) U/L ALT 14 (4-34) U/L Alkaline Phosphatase 62 (38-126) U/L Total Protein 6.4 (6.3-8.2) g/dL Albumin 4.3 (3.5-5.0) g/dL Urine Color Colorless Urine Appearance Clear (Clear) Urine pH 6.5 (5.0-8.0) Ur Specific Ray[place] 1.008 (1.001-1.035) Urine Protein Negative (Negative) Urine Glucose (UA) Negative (Negative) Urine Ketones Negative (Negative) Urine Blood Negative (Negative) Urine Nitrite Negative (Negative) Urine Bilirubin Negative (Negative) Urine Urobilinogen <2.0 (<2.0) mg/dL Ur Leukocyte Esterase Negative (Negative) Disposition Clinical Impression: Flank pain Disposition: HOME SELF-CARE Condition: Good Instructions (If sedation given, give patient instructions): Flank Pain (ED) Additional Instructions: Follow-up with your PCP and surgeon. Report back to ER with any new or worsening symptoms. Is patient prescribed a controlled substance at d/c from ED?: No Referrals: Froilan Lopez MD [Primary Care Provider] - 1-2 days Time of Disposition: 18:39
[2024-01-26] MEDS: LIDOCAINE 4% PATCH TOPICAL ONE (18:48)
[2024-01-26] MEDS: HYDROmorphone 0.5 MG/0.5 ML SYRINGE IVP STA (18:49)
[2024-01-26 18:57] VITALS: BP 120/78; PULSE 58; TEMP 98.1
== END 2024-01-26 18:57 | disposition home or self-care (01) ==
LOC: EC 16:04
DX: R10.12 Left upper quadrant pain (principal); Z88.8 Allergy status to other drugs, medicaments and biological substances
CPT/HCPCS: 36415; 80053; 85025; 81003; 74176; 99284; 96374; 96375; J2270; J1171

== ENCOUNTER → 2024-01-28 | Outpatient (CLI) | payer MEDICARE, OTHER ==
[2024-01-28 18:32] LABS: Hepatitis A Antibody IgM Nonreactive (Nonreactive); Hepatitis B Core IgM Nonreactive (Nonreactive); Hepatitis B Surface Antigen Nonreactive (Nonreactive); Hepatitis C IgG Antibody Nonreactive (Nonreactive)
[2024-01-28 19:02] LABS: ALT 13 U/L (8-44); AST 17 U/L (13-35); Albumin 4.2 g/dL (3.8-4.9); Albumin/Globulin Ratio 2.21 Ratio (1.60-3.17); Alkaline Phosphatase 63 U/L (41-126); BUN/Creat Ratio 34.86 Ratio (12.00-20.00); Blood Urea Nitrogen 24.4 mg/dL (9.0-27.0); Calcium 8.9 mg/dL (8.7-10.3); Carbon Dioxide 25.4 mmol/L (21.6-31.8); Chloride 107 mmol/L (96-109); Globulin 1.9 g/dL (1.6-3.3); Glucose 98 mg/dL (70-110); Potassium 4.4 mmol/L (3.5-5.5); Sodium 144 mmol/L (135-145); Total Bilirubin 0.3 mg/dL (0.3-1.2); Total Protein 6.1 g/dL (6.2-8.2)
[2024-01-28 19:46] LABS: Appearance,Urine Cloudy (Clear); Bacteria,Urine 1+ (None Seen); Bilirubin,Urine Small (Negative); Blood,Urine Negative (Negative); Calcium Oxalate Crystals,Urine Present (None Seen); Color,Urine Dark Yellow (Yellow); Ketones,Urine Negative (Negative); Mucus,Urine Present; Nitrite,Urine Negative (Negative); Specific Gravity,Urine >1.035 (1.001-1.030)
== END | disposition home or self-care (01) ==
LOC: LABWHC1 13:03
PROVIDERS: ATTEND Nurse Practitioner
DX: R82.2 Biliuria (principal)
CPT/HCPCS: 36415; 80053; 80074; 81001

== ENCOUNTER → 2024-02-11 | Outpatient (CLI) | payer MEDICARE, OTHER ==
--- NOTE | 2024-02-11 16:16 | US ---
EXAMINATION TYPE: US liver DATE OF EXAM: 02/11/2024 COMPARISON: CT(01/26/2024) CLINICAL INDICATION: Female, 68 years old with history of R82.2 BILIURIA; TECHNIQUE: Grayscale and color Doppler imaging of the right upper quadrant. FINDINGS: EXAM MEASUREMENTS: Liver Length: 14.4 cm Gallbladder Wall: Surgically absent cm CBD: 0.9 cm, color Doppler imaging was utilized to isolate the common bile duct for measurement. Right Kidney: 10.2x5.3x5.0 cm SUGAR CONTROLLER NOTES: Pancreas: Tail obscured by overlying bowel gas Liver: no abnormalities seen Gallbladder: Surgically absent Evidence for sonographic Henderson's sign: No CBD: wnl Right Kidney: No hydronephrosis or masses seen IMPRESSION: No evidence for acute process. [facility], , 02/11/2024 4:13 PM
== END | disposition home or self-care (01) ==
LOC: RADUSWWP 08:56
PROVIDERS: ATTEND Family Medicine
DX: R82.2 Biliuria (principal)
CPT/HCPCS: 76705

== ENCOUNTER → 2024-04-27 | Outpatient (CLI) | payer OTHER, MEDICARE ==
[2024-04-27 12:02] LABS: Appearance,Urine Cloudy (Clear); Bacteria,Urine Occasional /hpf; Bilirubin,Urine Negative (Negative); Blood,Urine Trace (Negative); Cellular Casts,Urine 2 /lpf (0); Color,Urine Light Yellow; Glucose,Urine (UA) Negative (Negative); Hyaline Casts,Urine 2 /lpf (0-2); Ketones,Urine Negative (Negative); Leukocyte Esterase,Urine Negative (Negative); Mucus,Urine Occasional /hpf; Nitrite,Urine Negative (Negative); PH, Urine 5.5 (5.0-8.0); Protein,Urine 1+ (Negative); RBC,Urine 2 /hpf (0-5); Specific Gravity,Urine 1.015 (1.001-1.035); Squamous Epithelial Cell,Urine 36 /hpf (0-4); Urobilinogen,Urine <2.0 mg/dL (<2.0); WBC,Urine 13 /hpf (0-5)
[2024-04-27 14:53] LABS: Basophils # (A) 0.03 X 10*3/uL (0.00-0.10); Basophils % (A) 0.4 %; Eosinophils # (A) 0.17 X 10*3/uL (0.04-0.35); Eosinophils % (A) 2.3 %; HGB 12.8 g/dL (12.0-15.0); Lymphocytes # (A) 1.33 X 10*3/uL (0.90-5.00); Lymphocytes % (A) 17.9 %; MCV 96.9 FL (80.0-97.0); Monocytes % (A) 8.1 %; NRBC Per 100 WBC 0 X 10*3/uL (0.00-0.01); Platelet Count 415 X 10*3/uL (140-440); RBC 4.13 X 10*6/uL (4.10-5.20); RDW 12.6 % (11.5-14.5); WBC 7.45 X 10*3/uL (4.50-10.00)
[2024-04-27 15:11] LABS: ALT 15 U/L (8-44); AST 22 U/L (13-35); Albumin 3.9 g/dL (3.8-4.9); Albumin/Globulin Ratio 1.77 Ratio (1.60-3.17); Alkaline Phosphatase 65 U/L (41-126); BUN/Creat Ratio 15.44 Ratio (12.00-20.00); Blood Urea Nitrogen 13.9 mg/dL (9.0-27.0); Carbon Dioxide 25.3 mmol/L (21.6-31.8); Chloride 109 mmol/L (96-109); Globulin 2.2 g/dL (1.6-3.3); Glucose 94 mg/dL (70-110); Potassium 4.1 mmol/L (3.5-5.5); Sodium 145 mmol/L (135-145); Total Bilirubin 0.3 mg/dL (0.3-1.2); Total Protein 6.1 g/dL (6.2-8.2)
== END | disposition home or self-care (01) ==
LOC: LABWHC1 09:53
PROVIDERS: ATTEND Family Medicine
DX: M62.838 Other muscle spasm (principal); M79.7 Fibromyalgia; R52 Pain, unspecified
CPT/HCPCS: 36415; 80053; 81001; 85025; 87086

== ENCOUNTER → 2024-05-04 | Outpatient (CLI) | payer MEDICARE, OTHER ==
[2024-05-04 14:02] LABS: African American GFR (CKD) >90 (>60 ml/min/1.73 sqM); Blood Urea Nitrogen 22 mg/dL (7-17); Non-African American GFR(CKD) 82 (>60 ml/min/1.73 sqM)
--- NOTE | 2024-05-04 14:49 | CT ---
EXAMINATION TYPE: CT abdomen pelvis wo/w con CT DLP: 902.40 mGycm, Automated exposure control for dose reduction was used. DATE OF EXAM: 05/04/2024 2:42 PM COMPARISON: CT abdomen pelvis 01/26/2024 CLINICAL INDICATION:Female, 69 years old with history of R10.9 ABD PAIN R52 PAIN UNSP M79.7 FIBROMYAL ISHA; INTRACTABLE LT SIDE PAIN, PT STATES ITS A CRAWLING, PAINFUL FEELING. CANNOT LAY ON HER RT SIDE B ECAUSE IT HURTS HER LT SIDE. HX OF BACK SPINAL SX. TECHNIQUE: Standard CT of the abdomen and pelvis before and after the uneventful administration of 100 mL Isovue 300 intravenously. Coronal and sagittal reformats were performed. FINDINGS: LOWER CHEST: The visualized lungs are clear. Bilateral breast prosthesis. Trace anterior pericardial effusion. ABDOMEN LIVER: Unremarkable GALLBLADDER AND BILE DUCTS: The gallbladder is surgically absent. No biliary ductal dilatation. PANCREAS: Unremarkable. SPLEEN: Unremarkable. ADRENAL GLANDS: Unremarkable. KIDNEYS AND URETERS: No evidence of hydronephrosis or renal calculus. The kidneys enhance symmetrical ly. Contrast is demonstrated within both collecting systems and proximal ureters on the delayed phase . PELVIS BLADDER: Underdistended but grossly unremarkable. REPRODUCTIVE: Unremarkable. ABDOMEN & PELVIS STOMACH AND BOWEL: No hiatal hernia. Small periampullary duodenal diverticulum.Distal colonic diverti culosis without evidence for acute diverticulitis. Mild amount of stool is present throughout the col on. The appendix is within normal limits. No focal bowel wall thickening or surrounding inflammatory changes. No pneumatosis. No evidence of bowel obstruction. PERITONEUM: No evidence of pneumoperitoneum or free fluid. VASCULATURE: No evidence of aortic aneurysm. Couple of pelvic phleboliths. MUSCULOSKELETAL: No acute osseous abnormalities. Postsurgical changes from posterior fusion at L5-S1 with bilateral pedicle screws and rods. Grade 1 anterolisthesis of L4 on L5 without evidence of pars defects. S-shaped scoliotic curvature of the thoracolumbar spine. Multilevel degenerative disc diseas e. LYMPH NODES: No evidence for lymphadenopathy. SOFT TISSUE/ABDOMINAL WALL: Small fat filled umbilical hernia. IMPRESSION: 1. No CT evidence for acute abdominal/pelvic process. 2. Colonic diverticulosis without evidence for acute diverticulitis. 3. Postsurgical changes of the spine at L5-S1. Grade 1 anterolisthesis of L4 on L5. S-shaped scolioti c curvature of the thoracolumbar spine with multilevel degenerative disc disease. [facility], , 05/04/2024 2:47 PM
== END | disposition home or self-care (01) ==
LOC: RADCTMAIN 13:05
PROVIDERS: ATTEND Family Medicine
DX: M79.7 Fibromyalgia (principal); K57.30 Diverticulosis of large intestine without perforation or abscess without bleeding; R10.9 Unspecified abdominal pain; M43.16 Spondylolisthesis, lumbar region; Z98.890 Other specified postprocedural states
CPT/HCPCS: 82565; 84520; 74178; 36415; Q9967

== ENCOUNTER → 2024-05-16 | Outpatient (CLI) | payer MEDICARE, OTHER ==
--- NOTE | 2024-05-16 13:26 | XR ---
EXAMINATION TYPE: XR thoracic spine complete DATE OF EXAM: 05/16/2024 12:49 PM COMPARISON: None CLINICAL INDICATION: Female, 69 years old with history of R10.9; PHH, pain TECHNIQUE: XR thoracic spine complete views of the spine in Frontal, swimmers and lateral projections . FINDINGS: No evidence of acute fracture. Fixation hardware in the cervical spine with hardware appears intact. There is scattered multilevel disk space narrowing without loss of vertebral body height. There is s coliotic alignment of the lumbar spine with more straightened alignment of the thoracic spine. Scatte red osteophyte formation along the anterior and lateral aspects of the vertebral bodies. Neural micheal en are patent given limitations of this exam. Spinal canal appears patent. Coronary cystectomy clips present. IMPRESSION: 1. No acute osseous pathology. 2. Moderate multilevel degeneration changes of the spine. 3. Scoliosis changes of the lumbar spine. [facility], , 05/16/2024 1:23 PM
== END | disposition home or self-care (01) ==
LOC: RADXRMAIN 12:24
PROVIDERS: ATTEND Family Medicine
DX: M47.814 Spondylosis without myelopathy or radiculopathy, thoracic region (principal); M41.24 Other idiopathic scoliosis, thoracic region; M79.7 Fibromyalgia; M62.830 Muscle spasm of back; M62.838 Other muscle spasm; Z79.899 Other long term (current) drug therapy; Z98.890 Other specified postprocedural states
CPT/HCPCS: 72072

== ENCOUNTER → 2024-07-20 | Outpatient (CLI) | payer OTHER, MEDICARE ==
--- NOTE | 2024-07-25 09:47 | MR ---
EXAMINATION TYPE: MR thoracic spine wo con DATE OF EXAM: 07/20/2024 9:22 AM COMPARISON: None. CLINICAL INDICATION: Female, 69 years old with history of M54.6 thoracic spine pain, Mid back pain, h x of cervical and lumbar surgery. TECHNIQUE: Multiplanar, multiecho imaging on a 3.0 Monica magnet is performed through the thoracic spi ne. IV Contrast: mL (None, if empty) FINDINGS: Spinal cord maintains normal signal through its visualized course. Vertebral body alignment is normal. Some disc space narrowing is present at T10-11 through T12-L1. Remaining disc heights appear preserve d. Vertebral body heights are preserved. Mild diffuse disc desiccation is present. T10-11: Some endplate changes are present with moderate anterior thecal sac compression. Additionally , facet hypertrophy has posterior lateral thecal sac compression. Spinal canal narrowing is present. No cord contact or spinal canal stenosis is evident. No spinal canal stenosis is evident. Some facet hypertrophy is noted T11-12. T12-L1 facet hypertrophy is present greater on the right with posterior lateral thecal sac compression. Lower cervical spine has postsurgical change. No spinal canal stenosis or cord contact is evident IMPRESSION: 1. Degenerative disc change and bulge in conjunction with facet hypertrophy at the T10-11 level contr ibuting to spinal canal narrowing without cord contact or stenosis [facility], , 07/25/2024 9:45 AM
== END | disposition home or self-care (01) ==
LOC: RADMRIMAIN 08:30
PROVIDERS: ATTEND Family Medicine
DX: M43.17 Spondylolisthesis, lumbosacral region (principal); M51.34 Other intervertebral disc degeneration, thoracic region; M48.04 Spinal stenosis, thoracic region
CPT/HCPCS: 72146